=== PATIENT | female | born 1940 | race African-American/Black ===

== ENCOUNTER 2017-08-09 21:34 | Observation (INO) | payer MEDICARE ==
[2017-08-09 22:02] LABS: #Basophils 0.1 thou/uL (0.0-0.2); #Eosinphils 0.1 thou/uL (0.0-0.7); #Lymphocytes 2.8 thou/uL (1.20-3.40); #Monocytes 0.5 thou/uL (0.11-0.59); #Neutrophils 3.6 thou/uL (1.40-6.50); %Basophils 0.8 % (0.0-1.0); %Eosinophils 0.7 % (0.0-10.0); %Lymphocytes 39.5 % (21.0-51.0); %Monocytes 7.3 % (0.0-10.0); %Neutrophils 51.7 % (42.0-75.0); Hemoglobin 11.3 g/dL (12.0-16.0); Mean Corpuscular HGB CONC 32.9 g/dL (32.0-36.0); Mean Corpuscular Hemoglobin 30.5 pg (27.0-31.0); Mean Corpuscular Volume 92.6 fl (81.0-99.0); Mean Platelet Volume 7.8 fL (7.4-10.4); Platelet Count 237 thou/uL (130-400); Red Blood Cell (RBC) Count 3.72 mill/uL (4.20-5.40)
[2017-08-09] MEDS ORDERED: Morphine 4 MG/ML VIAL ONE (22:16)
[2017-08-09] MEDS ORDERED: Nitroglycerin 2% Ointment 1 INCH/1 GM Packet ONE (22:16)
[2017-08-09 22:23] LABS: ALT (SGPT) 17 U/L (8-55); AST (SGOT) 20 U/L (5-34); Alkaline Phosphatase 95 U/L (40-150); Anion Gap 15 mmol/L (10-20); BUN (Urea Nitrogen) 23 mg/dL (9.8-20.1); Bilirubin, Total 0.2 mg/dL (0.2-1.2); Calc. Creatinine Clearance 0 mL/min (70-130); Calcium 9.6 mg/dL (7.8-10.44); Carbon Dioxide 23 mmol/L (23-31); Chloride 106 mmol/L (98-107); Estimated GFR-MDRD 57; Globulin 2.9 g/dL (2.4-3.5); Glucose 165 mg/dL (83-110); Potassium 4.4 mmol/L (3.5-5.1); Protein, Total 6.9 g/dL (6.0-8.3); Sodium 140 mmol/L (136-145)
[2017-08-09 22:27] LABS: CKMB 1.1 ng/mL (0-6.6); Troponin I Less than 0.010 ng/mL (< 0.028)
[2017-08-09] MEDS ORDERED: HumaLOG 300 UNITS/3 ML VIAL SC PRN (22:39)
[2017-08-09] MEDS ORDERED: Dextrose 5% in Water 1,000 ML IV PRN (22:39)
[2017-08-09] MEDS ORDERED: Dextrose 50% Abboject 50 ML SYRINGE SLOW IVP PRN (22:39)
[2017-08-09] MEDS ORDERED: Nitroglycerin 0.4 MG TAB (25 Tab Bottle) PO PRN (22:40)
[2017-08-09] MEDS ORDERED: Morphine 4 MG/ML VIAL SLOW IVP PRN (22:42)
[2017-08-09 23:58] VITALS: BMI 24.5
[2017-08-10] MEDS ORDERED: Gabapentin 300 MG CAP PO SCH (00:30)
[2017-08-10] MEDS ORDERED: Milk Of Magnesia 30 ML UDCUP PO PRN (02:58)
[2017-08-10] MEDS ORDERED: Nitroglycerin 0.4 MG TAB (25 Tab Bottle) SL PRN (02:59)
--- NOTE | 2017-08-10 04:54 | HP ---
PRIMARY CARE PHYSICIAN: Tiffanie Nieves M.D. PRESENTING COMPLAINT: Chest pain. HISTORY OF PRESENT ILLNESS: Ms. Fransisca Calero is a 77-year-old female with a past medical histor y of diabetes mellitus, CKD 2, and hypertension, who presented to the emergency room with complaints of intermittent chest pain for the past 5 months. Her current episode started about a week ago, she describes it as retrosternal, pressure-like pain, which does not radiate, rated 8-9/10, increased by movement and exertion, reduced by taking nitroglycerin. However, today her pain was not relieved by nitroglycerin, so she decided to come to the emergency room. She denies palpitations, PND, orthopnea , lower extremity edema. She has no history of cough, shortness of breath, fever or chills. She has no urinary or abdominal symptoms. She was seen by Dr. Chand and he told that she had "leaky bowels " and needed further evaluation for the test to check for "blockage." However, she reports that she has insurance problems and was told to come up with $900 for the procedures to be done then, so she d eferred it. However, due to her continued pain, she decided to report to the emergency room yesterda y. PAST MEDICAL HISTORY: As stated in HPI. PAST SURGICAL HISTORY: History of Whipple's procedure. SOCIAL HISTORY: She does not smoke cigarettes, drink alcohol or use illicit drugs. FAMILY HISTORY: Reviewed and noncontributory. ALLERGIES: None. HOME MEDICATIONS: Benazepril/hydrochlorothiazide 20 mg/25 mg tablet 1 tablet daily, clarithromycin 5 00 mg b.i.d., amlodipine 10 mg daily, aspirin 81 mg daily, gabapentin 100 mg at bedtime, metformin 10 00 mg b.i.d., pantoprazole 20 mg b.i.d. REVIEW OF SYSTEMS: Twelve point review of systems conducted and negative except as stated in HPI. PHYSICAL EXAMINATION: VITAL SIGNS: Blood pressure 145/81, oxygen saturation 93% on room air, respiratory rate 16, pulse ra te 63, temperature 98.2. GENERAL: Not in acute distress, sleeping comfortably, but easily aroused. HEENT: Normocephalic, atraumatic. Not pale, anicteric. PERRLA, EOMI. Moist mucous membranes. NECK: Supple, full range of movement. No JVD. RESPIRATORY: Vesicular breath sounds bilaterally. CHEST: Tenderness to palpation. No wheezes, rales, or rhonchi. CARDIOVASCULAR: S1 and S2 only, regular rate and rhythm. ABDOMEN: Soft, nontender, nondistended. Bowel sounds normoactive. No hepatosplenomegaly. NEUROLOGIC: Alert and well oriented to time, place, and person. No focal deficits. SKIN: Warm, dry, well perfused. No rashes or lesions. MUSCULOSKELETAL: No edema. Moves all extremities spontaneously. PSYCHIATRIC: Normal mood and affect. LABORATORY DATA: CBC is largely unremarkable. CMP with creatinine of 1.11 and BUN of 23. Initial t roponin less than 0.010. CTA chest showed no evidence of pulmonary embolism. Chest x-ray showed chr onic changes, but no acute intrathoracic abnormality. EKG shows no signs of acute ischemia. ASSESSMENT AND PLAN: 1. Chest pain: The patient had anginal type chest pain, which is chronic. Concern for possible acu te coronary syndrome based on her age and risk factors. She has been admitted to telemetry, troponin will be monitored. She has been placed on IV morphine p.r.n. for chest pain as well as sublingual n itroglycerin p.r.n. for chest pain. Cardiology has been consulted. We will also obtain an echocardi ogram as well as an exercise stress test. She might require cardiac catheterization before discharge . 2. Hypertension: Blood pressure was markedly uncontrolled when she presented with blood pressure of 194/93. However, it improved to 141/82 with the nitro paste. We will monitor blood pressure closel y and gradually reintroduce her home medications. 3. Diabetes mellitus 2. She had fair control. Last A1c was 6.5 in July of this month. We will co ntinue diabetic diet, sliding scale insulin, hypoglycemia protocol and blood glucose will be checked before meals and at bedtime. Metformin will be held as she might be going for cardiac catheterizatio n this admission. 4. Chronic kidney disease stage 2: The patient is at baseline. We will continue her home regimens, and also renally dose medications and avoid nephrotoxic drugs. 5. Deep venous thrombosis prophylaxis, subcutaneous heparin. CODE STATUS: FULL CODE.
[2017-08-10 05:47] LABS: #Basophils 0.1 thou/uL (0.0-0.2); #Eosinphils 0.1 thou/uL (0.0-0.7); #Lymphocytes 2.8 thou/uL (1.20-3.40); #Monocytes 0.5 thou/uL (0.11-0.59); #Neutrophils 2.9 thou/uL (1.40-6.50); %Basophils 0.8 % (0.0-1.0); %Lymphocytes 44.1 % (21.0-51.0); %Monocytes 7.6 % (0.0-10.0); %Neutrophils 46.5 % (42.0-75.0); Hemoglobin 9.9 g/dL (12.0-16.0); Mean Corpuscular HGB CONC 32.6 g/dL (32.0-36.0); Mean Corpuscular Hemoglobin 30.2 pg (27.0-31.0); Mean Corpuscular Volume 92.9 fl (81.0-99.0); Mean Platelet Volume 7.9 fL (7.4-10.4); Platelet Count 217 thou/uL (130-400); RBC Distribution Width 13.2 % (11.5-14.5); Red Blood Cell (RBC) Count 3.28 mill/uL (4.20-5.40); White Blood Cell (WBC) Count 6.3 thou/uL (4.8-10.8)
[2017-08-10 05:55] LABS: Anion Gap 7 mmol/L (10-20); BUN (Urea Nitrogen) 23 mg/dL (9.8-20.1); Calc. Creatinine Clearance 48 mL/min (70-130); Calcium 9.2 mg/dL (7.8-10.44); Carbon Dioxide 29 mmol/L (23-31); Cardiac Risk 3.1 (Less than 4.5); Chloride 107 mmol/L (98-107); Cholesterol 118 mg/dl (< 200 Desired); Estimated GFR-MDRD 67; Glucose 157 mg/dL (83-110); HDL Cholesterol 38 mg/dL (>60 Neg Risk); LDL Cholesterol, Calculated 49 mg/dL; Potassium 3.5 mmol/L (3.5-5.1); Sodium 139 mmol/L (136-145); Triglycerides 155 mg/dL (Less than 150)
[2017-08-10 05:57] LABS: Troponin I Less than 0.010 ng/mL (< 0.028)
[2017-08-10] MEDS ORDERED: metFORMIN 500 MG TAB PO SCH (08:00)
[2017-08-10] MEDS ORDERED: Aspirin 325 MG TAB PO SCH (09:00)
[2017-08-10] MEDS ORDERED: Ondansetron HCl/PF 4 MG/2 ML Vial IVP PRN (09:45)
[2017-08-10] MEDS ORDERED: ONDANSETRON IVP SCH ×2 (10:00→10:15)
[2017-08-10] MEDS ORDERED: ADMIXTURE FEE IVP SCH (10:15)
[2017-08-10] MEDS ORDERED: PRE FILLED IVP SCH (10:15)
[2017-08-10] MEDS: Heparin 5,000 UNITS/ML VIAL SC SCH ×3 (12:15→20:28)
[2017-08-10] MEDS: Amlodipine 10 MG TAB PO SCH (12:17)
[2017-08-10] MEDS: Aspirin 81 mg Enteric Coated Tablet PO SCH (12:18)
[2017-08-10] MEDS: Docusate 100 MG CAP PO SCH ×2 (12:19→20:26)
[2017-08-10] MEDS ORDERED: Communication Order-Pharmacy FS SCH (17:30)
[2017-08-10] MEDS: Sodium Chloride 0.9% 1,000 ML IV SCH (18:20)
--- NOTE | 2017-08-10 18:54 | CON ---
DATE OF CONSULTATION: 08/10/2017 REASON FOR CONSULTATION: Chest pain. HISTORY OF PRESENT ILLNESS: Mrs. Calero is a very pleasant 77-year-old female wh o comes to the hospital for chest pain. She was seen in the office in October and she gave me a history of chest pain concerning for angina, so she was scheduled to have a left heart catheterization; [facility], she was asked to pay a front a large amount of money that she was unable to get, so she had been dealing with this chest pain. Yesterday, she came in as the pain was most intense it has ever been, so she was admitted for unstable angina. She was admitted and placed in observation for this. PAST MEDICAL HISTORY: 1. Type 2 diabetes. 2. Chronic kidney disease stage 2. 3. Hypertension. 4. Chronic chest pain. PAST SURGICAL HISTORY: Whipple's procedure. SOCIAL HISTORY: No alcohol, tobacco or drugs. FAMILY HISTORY: Noncontributory. OUTPATIENT MEDICATIONS: Include, 1. Benazepril, hydrochlorothiazide 20/25 mg a day. 2. Clarithromycin. 3. Amlodipine 10 mg a day. 4. Aspirin 81 a day. 5. Gabapentin. 6. Metformin 1000 mg b.i.d. 7. Pantoprazole 20 mg b.i.d. ALLERGIES: No known drug allergies. REVIEW OF SYSTEMS: A 12-point review of systems was done and is all negative unless stated in the h istory of present illness. PHYSICAL EXAMINATION: VITAL SIGNS: Temperature 97.7, pulse 67, respiration rate 16, satting 100% on room air, blood pressu re 136/72. GENERAL: Awake, alert, oriented x3, in no distress. HEENT: Normocephalic, atraumatic. NECK: Supple. LUNGS: Clear. CARDIOVASCULAR: S1, S2, no S3, S4, no murmurs. ABDOMEN: Soft, positive bowel sounds. EXTREMITIES: No edema. SKIN: Warm and dry. LABORATORY WORK: Reviewed. Troponin has been negative x2. Creatinine 0.97, GFR of 67, triglyceride s of 155, cholesterol 118, LDL 49, HDL of 38. EKG was reviewed. ASSESSMENT AND PLAN: Chest pain: Concern for unstable angina. We will plan on keeping her in the h ospital for now and we will do a left heart catheterization tomorrow. Risks and benefits have been d iscussed with her today and previously as well. The risks include, but not limited to stroke, WI, de ath, bleeding, need for blood transfusion, limb loss, organ loss, severe vessel injury. She agrees t o proceed. Further recommendation results of coronary angiogram.
[2017-08-10] MEDS: Gabapentin 300 MG CAP PO SCH (20:26)
[2017-08-11] MEDS: Aspirin 81 mg Enteric Coated Tablet PO SCH (04:09)
[2017-08-11] MEDS: Amlodipine 10 MG TAB PO SCH (04:10)
[2017-08-11] MEDS: Docusate 100 MG CAP PO SCH ×2 (04:10→20:37)
[2017-08-11] MEDS: Heparin 5,000 UNITS/ML VIAL SC SCH ×3 (04:10→20:39)
[2017-08-11] MEDS: Sodium Chloride 0.9% 1,000 ML IV SCH (04:12)
[2017-08-11 05:40] LABS: Anion Gap 8 mmol/L (10-20); BUN (Urea Nitrogen) 16 mg/dL (9.8-20.1); Calc. Creatinine Clearance 71 mL/min (70-130); Calcium 6.7 mg/dL (7.8-10.44); Carbon Dioxide 20 mmol/L (23-31); Chloride 117 mmol/L (98-107); Estimated GFR-MDRD Greater than 90; Glucose 135 mg/dL (83-110); Potassium 2.9 mmol/L (3.5-5.1); Sodium 142 mmol/L (136-145)
[2017-08-11 05:49] LABS: #Eosinphils 0.1 thou/uL (0.0-0.7); #Lymphocytes 1.7 thou/uL (1.20-3.40); #Monocytes 0.4 thou/uL (0.11-0.59); #Neutrophils 2.2 thou/uL (1.40-6.50); %Basophils 0.4 % (0.0-1.0); %Eosinophils 1.4 % (0.0-10.0); %Lymphocytes 39.6 % (21.0-51.0); %Monocytes 8.6 % (0.0-10.0); Hemoglobin 9.4 g/dL (12.0-16.0); Mean Corpuscular HGB CONC 32.9 g/dL (32.0-36.0); Mean Corpuscular Hemoglobin 31.1 pg (27.0-31.0); Mean Corpuscular Volume 94.7 fl (81.0-99.0); Mean Platelet Volume 8.3 fL (7.4-10.4); Platelet Count 191 thou/uL (130-400); RBC Distribution Width 13.2 % (11.5-14.5); Red Blood Cell (RBC) Count 3.02 mill/uL (4.20-5.40); White Blood Cell (WBC) Count 4.4 thou/uL (4.8-10.8)
[2017-08-11] MEDS ORDERED: Potassium Chloride 20 MEQ TAB PO SCH ×2 (06:00→08:15)
[2017-08-11] MEDS: Acetaminophen 325 MG TAB PO PRN ×2 (09:04→20:38)
[2017-08-11 12:38] LABS: Anion Gap 14 mmol/L (10-20); BUN (Urea Nitrogen) 18 mg/dL (9.8-20.1); Calc. Creatinine Clearance 51 mL/min (70-130); Calcium 8.8 mg/dL (7.8-10.44); Carbon Dioxide 21 mmol/L (23-31); Chloride 108 mmol/L (98-107); Estimated GFR-MDRD 70; Glucose 245 mg/dL (83-110); Potassium 5.5 mmol/L (3.5-5.1); Sodium 137 mmol/L (136-145)
--- NOTE | 2017-08-11 16:59 | PDOC.CTH ---
Cardiology Progress Note - Subjective She is doing well. No more chest pain. Her hgb dropped since admission so C was cancelled due to concern for bleeding. - Objective Vital Signs Temp Pulse Resp BP Pulse Ox 08/11/17 15:28 98.1 F 81 14 163/82 H 96 08/11/17 13:06 150/78 H 08/11/17 11:00 98 F 68 18 172/86 H 95 08/11/17 07:51 98 F 67 18 08/11/17 07:20 98.1 F 70 18 165/81 H 93 L Weight 147 lb 3.2 oz 08/10/17 08/11/17 08/12/17 06:59 06:59 06:59 Intake Total 360 1828 740 Output Total 300 500 Balance 60 1328 740 - Physical Examination General/Neuro: alert & oriented x3, NAD Neck: no JVD present Lungs: CTA, unlabored respirations Heart: RRR Abdomen: NT/ND Extremities: other: (no edema.) - Telemetry Telemetry Rhythm: NSR - Labs Result Diagrams: 08/11/17 04:46 08/11/17 11:19 Troponin/CKMB CK-MB (CK-2) 1.1 ng/mL (0-6.6) 08/09/17 21:56 Troponin I Less than 0.010 ng/mL (< 0.028) 08/10/17 04:51 - Assessment/Plan 1. Chest pain. 2. Anemia, may be related to fluids given. 3. Hypokalemia, replaced. PLAN: - If hgb stable tomorrow morning will plan in [facility]. - BMS if needed due to anemia.
[2017-08-11] MEDS: Gabapentin 300 MG CAP PO SCH (20:37)
--- NOTE | 2017-08-11 22:24 | PDOC.PN ---
- Subjective Encounter Start Date: 08/11/17 Encounter Start Time: 16:00 Subjective: nsg notes rev, iveth ovn no new c/o, at bedside -: denies any CP, SOB, n/v, headache, mm cramping - Objective Resuscitation Status: Resuscitation Status FULL:Full Resuscitation Vital Signs & Weight: Vital Signs (12 hours) Temp Pulse Resp BP Pulse Ox 08/11/17 19:41 98.2 F 74 14 154/80 H 95 08/11/17 15:28 98.1 F 81 14 163/82 H 96 08/11/17 13:06 150/78 H 08/11/17 11:00 98 F 68 18 172/86 H 95 Weight Weight 147 lb 3.2 oz I&O: 08/10/17 08/11/17 08/12/17 06:59 06:59 06:59 Intake Total 360 1828 980 Output Total 300 500 400 Balance 60 1328 580 Result Diagrams: 08/12/17 04:25 08/12/17 04:25 Additional Labs: Accuchecks 08/11/17 08/11/17 08/11/17 20:28 16:03 10:40 POC Glucose 176 H 159 H 282 H 08/10/17 10:39 POC Glucose 153 H Phys Exam - Physical Examination Constitutional: NAD HEENT: moist MMs, sclera anicteric, oral pharynx no lesions Respiratory: no wheezing, no rales, no rhonchi, clear to auscultation bilateral Cardiovascular: RRR, no rub Gastrointestinal: soft, no distention, positive bowel sounds Musculoskeletal: no edema, pulses present Neurological: moves all 4 limbs Psychiatric: normal affect, A&O x 3 Dx/Plan - Plan * chest pain * no recurrence * apprec card c/s * LHC originally planned for today is deferred due to hypokalemia hypokalemia * no obvious etiology at this time * repletion and recheck with telemetry monitoring * plan for LHC in AM if hypokalemia resovled diet: cardiac, NPO after mdinight activity: as sagrario dvt ppx
[2017-08-12 04:31] VITALS: TEMP 98
[2017-08-12] MEDS: Amlodipine 10 MG TAB PO SCH (05:13)
[2017-08-12] MEDS: Aspirin 81 mg Enteric Coated Tablet PO SCH (05:14)
[2017-08-12] MEDS: Docusate 100 MG CAP PO SCH (05:16)
[2017-08-12] MEDS: Heparin 5,000 UNITS/ML VIAL SC SCH (05:16)
[2017-08-12 05:25] LABS: Anion Gap 10 mmol/L (10-20); BUN (Urea Nitrogen) 21 mg/dL (9.8-20.1); Calc. Creatinine Clearance 53 mL/min (70-130); Calcium 9.1 mg/dL (7.8-10.44); Carbon Dioxide 27 mmol/L (23-31); Chloride 107 mmol/L (98-107); Estimated GFR-MDRD 74; Glucose 154 mg/dL (83-110); Sodium 140 mmol/L (136-145)
[2017-08-12 05:43] LABS: Eosinophils 1 % (0-10); Hemoglobin 11.2 g/dL (12.0-16.0); Lymphocytes 59 % (21-51); MDiff Complete? YES; Mean Corpuscular HGB CONC 32.6 g/dL (32.0-36.0); Mean Corpuscular Hemoglobin 30.2 pg (27.0-31.0); Mean Corpuscular Volume 92.6 fl (81.0-99.0); Mean Platelet Volume 8.2 fL (7.4-10.4); Monocytes 9 % (0-10); Myelocyte 1 % (0-0); Neutrophil 29 % (42-75); Platelet Count 233 thou/uL (130-400); Reactive Lymphocytes 1 % (0-10); Red Blood Cell (RBC) Count 3.69 mill/uL (4.20-5.40); White Blood Cell (WBC) Count 5.1 thou/uL (4.8-10.8)
[2017-08-12] MEDS ORDERED: Lidocaine 1% (PF) 30 ML VIAL ONE (09:29)
[2017-08-12 11:44] VITALS: BP 164/80
[2017-08-12] MEDS ORDERED: Iopamidol 370 76% 100 ML VIAL ONE (13:46)
== END 2017-08-12 15:53 | disposition home or self-care (01) ==
LOC: ERS 21:34 → 2SW 22:57
PROVIDERS: ADMIT Internal Medicine; ATTEND Internal Medicine
PROC: 4A023N7 Measurement of Cardiac Sampling and Pressure, Left Heart, Percutaneous Approach (ICD-10-PCS; principal; 2017-08-09)
DX: I25.110 Atherosclerotic heart disease of native coronary artery with unstable angina pectoris (principal); I12.9 Hypertensive chronic kidney disease with stage 1 through stage 4 chronic kidney disease, or unspecified chronic kidney disease; E11.22 Type 2 diabetes mellitus with diabetic chronic kidney disease; N18.2 Chronic kidney disease, stage 2 (mild); Z79.82 Long term (current) use of aspirin; Z79.84 Long term (current) use of oral hypoglycemic drugs; Z79.899 Other long term (current) drug therapy; Z98.890 Other specified postprocedural states
CPT/HCPCS: 80048 ×4; 80053; 80061; 82553; 82962 ×2; 84484 ×2; 85025 ×4; 93005; 93306; 93458; 94760; 96361 ×2; 96374; 96375; 96376 ×2; 99285; C1769; G0378 ×2; 36415; 36416; A4216; J1644; J2001; J2270; J2405

== ENCOUNTER 2017-10-01 13:39 | Outpatient (CLI) | payer MEDICARE | END 2017-10-01 13:40 | disposition home or self-care (01) | LOC: BICMAMMO 13:39 | PROVIDERS: ATTEND Family Medicine | DX: Z12.31 Encounter for screening mammogram for malignant neoplasm of breast (principal) | CPT/HCPCS: 77063; 77067 ==

== ENCOUNTER 2017-10-27 08:29 | Outpatient (CLI) | payer MEDICARE | END 2017-10-27 08:30 | disposition home or self-care (01) | LOC: EDBD → BICMRI 08:29 | PROVIDERS: ATTEND Family Medicine | DX: N64.4 Mastodynia (principal) | CPT/HCPCS: 82565; C8908 ==

== ENCOUNTER 2018-03-04 10:57 | Observation (INO) | payer MEDICARE ==
[2018-03-04 12:16] LABS: Troponin I Less than 0.010 ng/mL (< 0.028)
[2018-03-04] MEDS ORDERED: Iopamidol 370 76% 100 ML VIAL ONE (12:35)
[2018-03-04] MEDS ORDERED: Morphine 2 MG/ML SYRINGE ONE (12:41)
[2018-03-04 14:16] VITALS: BMI 23.0
[2018-03-04 15:14] LABS: Troponin I Less than 0.010 ng/mL (< 0.028)
[2018-03-04] MEDS ORDERED: Ondansetron PF 4 MG/2 ML Vial IVP PRN (15:16)
[2018-03-04] MEDS ORDERED: Ondansetron ODT 4 MG TAB PO PRN (15:16)
[2018-03-04] MEDS ORDERED: Acetaminophen 325 MG TAB PO PRN (15:16)
[2018-03-04] MEDS ORDERED: Nitroglycerin 0.4 MG TAB (25 Tab Bottle) SL PRN (15:23)
[2018-03-04 15:55] LABS: #Lymphocytes 1.6 thou/uL (1.20-3.40); #Monocytes 0.7 thou/uL (0.11-0.59); #Neutrophils 3.1 thou/uL (1.40-6.50); %Basophils 0.8 % (0.0-1.0); %Eosinophils 0.8 % (0.0-10.0); %Lymphocytes 29.3 % (21.0-51.0); %Monocytes 11.8 % (0.0-10.0); %Neutrophils 57.3 % (42.0-75.0); Hemoglobin 11.1 g/dL (12.0-16.0); Mean Corpuscular HGB CONC 32.2 g/dL (32.0-36.0); Mean Corpuscular Hemoglobin 30.4 pg (27.0-31.0); Mean Corpuscular Volume 94.3 fL (78.0-98.0); Mean Platelet Volume 8.4 fL (7.4-10.4); Platelet Count 235 thou/uL (130-400); RBC Distribution Width 12.9 % (11.5-14.5); Red Blood Cell (RBC) Count 3.65 mill/uL (4.20-5.40); White Blood Cell (WBC) Count 5.5 thou/uL (4.8-10.8)
[2018-03-04 16:06] LABS: ALT (SGPT) 40 U/L (8-55); AST (SGOT) 31 U/L (5-34); Albumin 3.7 g/dL (3.4-4.8); Alkaline Phosphatase 69 U/L (40-150); Anion Gap 14 mmol/L (10-20); BUN (Urea Nitrogen) 16 mg/dL (9.8-20.1); Bilirubin, Total 0.4 mg/dL (0.2-1.2); Calc. Creatinine Clearance 55 mL/min (70-130); Calcium 9.1 mg/dL (7.8-10.44); Carbon Dioxide 24 mmol/L (23-31); Chloride 108 mmol/L (98-107); Estimated GFR-MDRD 84; Globulin 2.6 g/dL (2.4-3.5); Glucose 100 mg/dL (83-110); Potassium 3.3 mmol/L (3.5-5.1); Protein, Total 6.3 g/dL (6.0-8.3); Sodium 143 mmol/L (136-145)
--- NOTE | 2018-03-04 18:00 | ULT ---
ULTRASOUND WITH DOPPLER DUPLEX VENOUS LOWER EXTREMITY BILATERAL 03/04/18 CPT: 23656 ICD-10-PCS: B54D HISTORY: Pain with elevated D-dimer. TECHNIQUE: Color flow Doppler, spectral waveform analysis of pulsed Doppler, and porter-scale imaging with bertrand jennifer and augmentation, were used to evaluate the bilateral common femoral, femoral, popliteal, assistant professor of economics ior tibial, and superficial femoral, veins; and the proximal portions of the profunda femoral and gre ater saphenous, veins. FINDINGS: There is appropriate compressibility and flow within the imaged deep vein system of each lower extrem ity. IMPRESSION: No DVT. POS: [facility]
--- NOTE | 2018-03-04 18:12 | CT ---
CTA THORAX WITH CONTRAST: 03/04/18 at 3:42 p.m. (Computed Tomographic Angiography, chest(noncoronary) with contrast material, and image postprocessin g) (PE protocol) HISTORY: 77-year-old female with chest pain. COMPARISON: 08/09/17. TECHNIQUE: IV injection of iodinated contrast: 70 mL Isovue 370. Scan acquisition timing attempted to coincide with iodinated contrast bolus reaching maximal density in pulmonary arteries. 3D MIP reconstructions. FINDINGS: There is a new finding of gas in the common hepatic duct, left and right hepatic ducts, and left intr ahepatic biliary radicles. There is very good opacification of all of the pulmonary artery branches. There is no pulmonary thromboembolism. There is no thoracic aortic aneurysm or dissection. There are densities at the posterior bases of the bilateral lower lobes at the posterior costophrenic angles, c onsistent with subsegmental atelectasis and/or scar, somewhat similar to previous CT. The rest of the lungs are essentially clear. No pleural effusion or pneumothorax. Trachea and major bronchi are pat ent and clear. No mediastinal or hilar lymphadenopathy. No pneumothorax. No pericardial effusion. Th e right breast is absent. Multiple thyroid nodules are again demonstrated, unchanged since 08/09/17. T he previous CTA showed a left adrenal nodule. The current CTA does not include that level. IMPRESSION: 1. New finding of pneumobilia. If the patient has had ERCP with sphincterotomy, or recent surgic al manipulation of the common bile duct, this could be explained by such a procedure. Otherwise, the possibility of emphysematous cholangitis would be raised. Recommend clinical correlation and correlat ion with any recent surgical history. 2. No pulmonary thromboembolism. 3. Status post right mastectomy. Code T jn[] POS: [facility]
[2018-03-04 18:16] LABS: Troponin I Less than 0.010 ng/mL (< 0.028)
[2018-03-04] MEDS: traMADol HCl 50 MG TAB PO PRN (19:13)
[2018-03-04] MEDS: Famotidine 20 MG TAB PO SCH (19:15)
[2018-03-04] MEDS ORDERED: Gabapentin 400 MG CAP PO SCH (21:00)
[2018-03-04] MEDS ORDERED: Atorvastatin Calcium 10 MG TAB PO SCH (21:00)
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
[2018-03-05 05:00] LABS: #Eosinphils 0.1 thou/uL (0.0-0.7); #Lymphocytes 1.6 thou/uL (1.20-3.40); #Monocytes 0.5 thou/uL (0.11-0.59); #Neutrophils 2.4 thou/uL (1.40-6.50); %Basophils 0.3 % (0.0-1.0); %Eosinophils 1.4 % (0.0-10.0); %Lymphocytes 34.7 % (21.0-51.0); %Monocytes 10.5 % (0.0-10.0); %Neutrophils 53.1 % (42.0-75.0); Hemoglobin 10.8 g/dL (12.0-16.0); Mean Corpuscular HGB CONC 32.2 g/dL (32.0-36.0); Mean Corpuscular Volume 93.3 fL (78.0-98.0); Mean Platelet Volume 8.3 fL (7.4-10.4); Platelet Count 217 thou/uL (130-400); RBC Distribution Width 12.9 % (11.5-14.5); Red Blood Cell (RBC) Count 3.59 mill/uL (4.20-5.40); White Blood Cell (WBC) Count 4.6 thou/uL (4.8-10.8)
[2018-03-05 05:14] LABS: Anion Gap 10 mmol/L (10-20); BUN (Urea Nitrogen) 15 mg/dL (9.8-20.1); Calc. Creatinine Clearance 61 mL/min (70-130); Calcium 8.7 mg/dL (7.8-10.44); Carbon Dioxide 26 mmol/L (23-31); Chloride 108 mmol/L (98-107); Estimated GFR-MDRD Greater than 90; Glucose 110 mg/dL (83-110); Potassium 3.3 mmol/L (3.5-5.1); Sodium 141 mmol/L (136-145)
[2018-03-05] MEDS: traMADol HCl 50 MG TAB PO PRN (08:12)
[2018-03-05] MEDS: Famotidine 20 MG TAB PO SCH (08:14)
[2018-03-05] MEDS ORDERED: Aspirin 81 mg Enteric Coated Tablet PO SCH (09:00)
[2018-03-05] MEDS ORDERED: Hydrochlorothiazide 25 MG TAB PO SCH (09:00)
[2018-03-05] MEDS ORDERED: Docusate 100 MG CAP PO SCH (09:00)
[2018-03-05] MEDS ORDERED: Lidocaine 5% Patch TD SCH (09:00)
[2018-03-05] MEDS ORDERED: Enoxaparin Sodium 40 MG/0.4 ML SYRINGE SC SCH (09:00)
[2018-03-05] MEDS ORDERED: Amlodipine 10 MG TAB PO SCH (09:00)
[2018-03-05 12:00] VITALS: TEMP 98.5
[2018-03-05 12:14] VITALS: BP 112/68
[2018-03-05] MEDS ORDERED: Lidocaine Patch Removal 1 EACH TOP SCH (21:00)
== END 2018-03-05 12:49 | disposition home or self-care (01) ==
LOC: ERS 10:57 → 2SW 12:45
PROVIDERS: ADMIT Internal Medicine Infectious Disease; ATTEND Internal Medicine Infectious Disease
DX: R07.9 Chest pain, unspecified (principal); E11.22 Type 2 diabetes mellitus with diabetic chronic kidney disease; I12.9 Hypertensive chronic kidney disease with stage 1 through stage 4 chronic kidney disease, or unspecified chronic kidney disease; E78.5 Hyperlipidemia, unspecified; K21.9 Gastro-esophageal reflux disease without esophagitis; N17.9 Acute kidney failure, unspecified; Z79.84 Long term (current) use of oral hypoglycemic drugs; Z79.02 Long term (current) use of antithrombotics/antiplatelets; Z79.899 Other long term (current) drug therapy
CPT/HCPCS: 71275; 80048; 80053; 84484 ×2; 85025 ×2; 93005; 93970; 96372; 96374; 96375; 99285; G0378 ×2; 36415; J1650; J2270; J2405; Q0162

== ENCOUNTER 2018-05-04 19:40 | Inpatient (IN) | payer MEDICARE ==
[2018-05-04] MEDS ORDERED: Ondansetron PF 4 MG/2 ML Vial IVP PRN (23:34)
[2018-05-04] MEDS ORDERED: Acetaminophen 325 MG TAB PO PRN (23:34)
[2018-05-04] MEDS ORDERED: Ondansetron ODT 4 MG TAB SL PRN (23:34)
[2018-05-04] MEDS ORDERED: Sodium Chloride 0.9% 1,000 ML IV SCH (23:34)
[2018-05-05] MEDS ORDERED: traMADol HCl 50 MG TAB PO PRN (00:21)
[2018-05-05] MEDS ORDERED: Nitroglycerin 0.4 MG TAB (25 Tab Bottle) SL PRN (00:21)
[2018-05-05 01:41] VITALS: BMI 23.8
[2018-05-05] MEDS ORDERED: Dextrose 50% Abboject 50 ML SYRINGE SLOW IVP PRN (05:01)
[2018-05-05] MEDS ORDERED: Dextrose 5% in Water 1,000 ML IV PRN (05:01)
[2018-05-05 06:25] LABS: Band 2 % (5-11); Hemoglobin 10.9 g/dL (12.0-16.0); Lymphocytes 36 % (21-51); MDiff Complete? YES; Mean Corpuscular HGB CONC 32.1 g/dL (32.0-36.0); Mean Corpuscular Hemoglobin 30.2 pg (27.0-31.0); Mean Corpuscular Volume 94.2 fL (78.0-98.0); Mean Platelet Volume 7.9 fL (7.4-10.4); Monocytes 6 % (0-10); Neutrophil 56 % (42-75); Platelet Count 219 thou/uL (130-400); Platelet Morphology Comment Appears Adequate; RBC Distribution Width 13.4 % (11.5-14.5); White Blood Cell (WBC) Count 4.8 thou/uL (4.8-10.8)
[2018-05-05 06:26] LABS: Anion Gap 12 mmol/L (10-20); BUN (Urea Nitrogen) 22 mg/dL (9.8-20.1); Calc. Creatinine Clearance 53 mL/min (70-130); Calcium 9.4 mg/dL (7.8-10.44); Carbon Dioxide 24 mmol/L (23-31); Cardiac Risk 2.1 (Less than 4.5); Chloride 110 mmol/L (98-107); Cholesterol 96 mg/dl (< 200 Desired); Estimated GFR-MDRD 77; Glucose 128 mg/dL (83-110); HDL Cholesterol 46 mg/dL (>60 Neg Risk); LDL Cholesterol, Calculated 37 mg/dL; Potassium 3.7 mmol/L (3.5-5.1); Sodium 142 mmol/L (136-145); Triglycerides 65 mg/dL (Less than 150)
--- NOTE | 2018-05-05 06:53 | HP ---
PRIMARY CARE PHYSICIAN: Niraj Solomon MD CODE STATUS: Full code. TIME OF EVALUATION: 9:10 p.m. CHIEF COMPLAINT: Right hand numbness. HISTORY OF PRESENT ILLNESS: This is a 77-year-old female patient with past medical history of hyperlipidemia; diabetes, type 2; GERD; and hypertension, came to the hospital after having right-sided weakness, especially in her hands. 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 No clear triggers and no alleviating factors. Also having some symptoms in the right leg. REVIEW OF SYSTEMS: CONSTITUTIONAL: No fever, chills, or generalized weakness. RESPIRATORY: No cough, sputum production, or shortness of breath. CARDIOVASCULAR: No chest pain or palpitations. GASTROINTESTINAL: No nausea. No vomiting, diarrhea, or abdominal pain. HANDLE FINISHER: The patient has no dizziness, headache, or feeling lightheaded. The patient reported weakness in the right hand and right lower extremity. GENITOURINARY: No burning on urination. EXTREMITIES: No leg swelling. All other systems were reviewed and negative except for the findings mentioned above. PAST MEDICAL HISTORY: As mentioned in the HPI. PAST SURGICAL HISTORY: The patient had Whipple surgery, right mastectomy, and surgical history of appendectomy. PSYCHIATRIC HISTORY: Depression. SOCIAL HISTORY: No alcohol, no drugs. No smoking history. ALLERGIES: NO KNOWN DRUG ALLERGIES REPORTED. MEDICATIONS: 1. Amlodipine. 2. Metformin. 3. Simvastatin. 4. Iron. 5. Gabapentin. 6. Hydrochlorothiazide. PHYSICAL EXAMINATION: VITAL SIGNS: On presentation; blood pressure 177/89 with heart rate 67, respiratory rate was 16, temperature 98.1, and oxygen saturation was 98% on room air. GENERAL APPEARANCE: The patient is alert, oriented, in no acute distress. HEENT: Eyes, normal conjunctivae. Moist oral mucosa. Anicteric. NECK: No JVD. RESPIRATORY: Bilateral air entry. No rales. No wheezing. Symmetric expansion. CARDIOVASCULAR: Normal rate. Regular rhythm. No murmurs. No gallops. No edema. ABDOMEN: Soft. Normal bowel sounds. MUSCULOSKELETAL: Baseline range of motion and strength. No tenderness. SKIN: Warm and intact. No burn or rash. No redness. EXTREMITIES: Peripheral pulses are present. Capillary refill seems to be intact. NEURO: No evidence of any new focal weakness. During my exam, the patient reported having right hand weakness and also weakness on the right lower extremity for the past 2 days. Cranial nerves seems to be intact. PSYCHIATRIC: The patient is in good mood. No anxiety. Oriented, optimal judgment. DIAGNOSTIC DATA: EKG was reviewed by myself and discussed with ER physician; normal sinus rhythm with a rate of 68, MD 134, QRS 78, QT corrected 442, minimum voltage criteria for LVH. Non-specific T-wave abnormalities. Labs were reviewed. The patient has a white count of 6.3, hemoglobin 12, MCV 94, and platelet count 254. Coagulation; PT 13, INR 1, PTT 23.8, and D-dimer is 0.5. Chemistry; sodium 143, potassium 4.1, chloride 108, carbon dioxide 26, anion gap 13, BUN 27, creatinine 1.72, GFR 73, and glucose 139. Urine was done and was basically negative. ASSESSMENT AND PLAN: The patient will be placed in the hospital with following medical problems: 1. Possible transient ischemic attack. The patient has right upper extremity and lower extremity weakness, symptoms were present for the past 2 days, on and off. We will do a stroke protocol MRI, echo. The patient also will need carotid Doppler. This placed the patient at high risk due to neurological changes. 2. Uncontrolled blood pressure. The patient has occasionally systolic blood pressure in 177, reconcile home meds, we will allow some permissive hypertension due to neurological symptoms. necessary. 3. Hyperlipidemia, low-cholesterol diet is advised, reconcile home medications. 4. Diabetes, type 2. We will reconcile home meds. We will place the patient on sliding scale. 5. Gastroesophageal reflux disease, reconcile home meds. 6. History of chronic back pain, reconcile home medications, adjust treatment as needed. 7. History of chronic kidney disease, monitor kidney function, treat accordingly. 8. Deep venous thrombosis prophylaxis. 9. Risk assessment. The patient is at high risk due to new neurological changes. Job ID: [id number] [facility]
[2018-05-05] MEDS ORDERED: Lorazepam 0.5 MG TAB PO SCH (08:15)
[2018-05-05] MEDS ORDERED: Aspirin 325 mg Enteric Coated Tablet PO SCH (09:00)
[2018-05-05] MEDS: Aspirin 81 mg Enteric Coated Tablet PO SCH (09:32)
[2018-05-05] MEDS: Enoxaparin Sodium 40 MG/0.4 ML SYRINGE SC SCH (09:32)
[2018-05-05] MEDS: Docusate 100 MG CAP PO SCH (09:33)
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
[2018-05-05] MEDS: HumaLOG 300 UNITS/3 ML VIAL SC PRN (11:49)
[2018-05-05 12:33] LABS: Troponin I Less than 0.010 ng/mL (< 0.028)
--- NOTE | 2018-05-05 12:47 | MRI ---
MRI BRAIN NONCONTRAST ENHANCED: HISTORY: The patient is complaining of right-sided weakness. TIAs. TECHNIQUE: Multiplanar, multisequence, noncontrast-enhanced MR images of the brain are obtained. FINDINGS: The images demonstrate no significant evidence of diffusion restriction. No evidence of intracranial masses, hemorrhages, or strokes seen. The ventricles are of normal size. Age appropriate cortical atrophy is present. No evidence of acute or old stroke seen. No evidence of acute intracranial pathology noted. IMPRESSION: Cortical atrophy with deep white matter ischemic changes. Normal flow voids seen in the major intrac ranial vessels. POS: [facility]
[2018-05-05] MEDS ORDERED: traMADol HCl 50 MG TAB PO SCH (13:00)
[2018-05-05] MEDS: Hydrochlorothiazide 25 MG TAB PO SCH (15:30)
[2018-05-05] MEDS: Amlodipine 10 MG TAB PO SCH (15:31)
--- NOTE | 2018-05-05 17:53 | PDOC.EVN ---
Event Note - Event Note Event Note: Chart reviewed. Pt seen with Nayeli Oliveros. Pt denies chest pain. S1, S2 Lungs CTA A/P: 1. TIA: w/u in progress 2. Hypertensive urgency: Improved. Agree with plan as documented by Ms. Oliveros.
[2018-05-05] MEDS: traMADol HCl 50 MG TAB PO SCH ×2 (19:27→20:50)
[2018-05-05] MEDS: Gabapentin 100 MG CAP PO SCH (20:49)
[2018-05-05] MEDS: Atorvastatin Calcium 40 MG TAB PO SCH (20:51)
[2018-05-05] MEDS: Atorvastatin Calcium 10 MG TAB PO SCH (20:51)
--- NOTE | 2018-05-05 23:14 | CON ---
DATE OF CONSULTATION: 05/05/2018 TYPE OF CONSULTATION: Neurologic Consultation. CONSULTING PHYSICIAN: Hospitalist Service. IMPRESSION: 1. Pressure palsy of the right arm. 2. Diabetes. 3. Hypertension. PLAN: The patient should recover spontaneously. HISTORY OF PRESENT ILLNESS: Ms. Calero is a 77-year-old black female with a past history as listed above. She was asleep and her noted that her arm was hanging off the bed. He picked her arm up and put it next to her. She apparently rolled over onto her right side. When she awoke, she found her arm was weak and that her hand was numb. There is some pain in the shoulder area, but no radicular pain. She came into the emergency room and had a CT and MRI of the brain, nothing remarkable was found. She has not had anything like this in the past. She denies any slurred speech or difficulty swallowing. She has no associated headache, nausea, vomiting, or vertigo. She does not report any new right leg weakness. She does have some joint pain. PAST MEDICAL HISTORY: As listed above. ALLERGIES: NONE. SOCIAL HISTORY: She is and does not smoke. MEDICATIONS: Medication list was reviewed. FAMILY HISTORY: Noncontributory. REVIEW OF SYSTEMS: Ten system review of systems was, otherwise, negative. PHYSICAL EXAMINATION: GENERAL: She is a thin, elderly lady, lying in bed, in no distress. VITAL SIGNS: Blood pressure 132/65, pulse 62, respirations 18, temperature 98.4. HEENT: Pupils are equal. Conjunctivae clear. Oropharynx clear. NECK: Supple. No lymphadenopathy. EXTREMITIES: No cyanosis or edema. NEUROLOGIC: She was alert and cooperative. Her speech was fluent and clear. Cranial nerves were intact. Motor exam showed 4-/5 biceps, triceps, wrist extension, wrist flexion, and finger flexion on the right. Sensation was subjectively decreased in the entire palm. No tremor or dysmetria was present. She can walk independently. Plantar responses were downgoing. SUMMARY: This is an elderly lady with diabetes and with weakness in the right arm upon awakening. Her MRI is negative. Her findings would be consistent with a pressure palsy. These usually improve spontaneously. Job ID: [id number]
[2018-05-06] MEDS: traMADol HCl 50 MG TAB PO SCH ×5 (05:25→23:28)
[2018-05-06] MEDS: Amlodipine 10 MG TAB PO SCH (08:41)
[2018-05-06] MEDS: Docusate 100 MG CAP PO SCH (08:43)
[2018-05-06] MEDS: Hydrochlorothiazide 25 MG TAB PO SCH (08:44)
[2018-05-06] MEDS: Aspirin 81 mg Enteric Coated Tablet PO SCH (08:44)
[2018-05-06] MEDS: Enoxaparin Sodium 40 MG/0.4 ML SYRINGE SC SCH (08:44)
--- NOTE | 2018-05-06 09:11 | PDOC.PN ---
- Subjective Encounter Start Date: 05/06/18 Encounter Start Time: 09:09 Subjective: Reports persistent numbness in right hand. Weakness improved slightly -: Swelling in right lower leg. Previous injury and undergoing therapy. -: However slightly more swollen and now with calf pain. No chest pain. Slightly winded when walking to the bathroom. No cough or hemoptysis. Tolerating food intake. Mild nausea yesterday relieved with anti-emetics. No vomiting. Denies any abdominal pain. Normal bowel movements. No urinary symptoms. Remains afebrile. - Objective Resuscitation Status - Order Detail: 05/05/18 00:18 Resuscitation Status Routine Resuscitation Status: FULL: Full Resuscitation Vital Signs & Weight: Vital Signs (12 hours) Temp Pulse Resp BP Pulse Ox 05/06/18 08:41 65 05/06/18 07:47 98.2 F 65 20 145/90 H 95 05/06/18 03:14 98.4 F 66 18 151/92 H 94 L 05/06/18 00:00 98.3 F 66 18 137/87 94 L Weight Weight 138 lb 14.4 oz I&O: 05/05/18 05/06/18 05/07/18 06:59 06:59 06:59 Intake Total 690 1440 Balance 690 1440 Result Diagrams: 05/06/18 09:24 05/06/18 09:24 Additional Labs: Accuchecks 05/06/18 05/05/18 05/05/18 05:41 19:59 11:12 POC Glucose 148 H 182 H 182 H Phys Exam - Physical Examination Constitutional: NAD HEENT: PERRLA, moist MMs, oral pharynx no lesions Neck: no JVD, supple, full ROM Respiratory: clear to auscultation bilateral Cardiovascular: RRR Gastrointestinal: soft, non-tender, no distention, positive bowel sounds Musculoskeletal: no edema Right lower leg swelling, calf tenderness Neurological: moves all 4 limbs reduced sensation in right hand. 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 -: Seen by Neuro, felt to have pressure palsy. -: Awaiting MRI Rt Shoulder scheduled as OutPt. Prior to having PT. Doppler negative. Sats low since admission. Given elevated d-dimer, I have requested CTPA. ADDENDUM: Due to complaints of nausea/dry heaving and abdo distention, Abdominal Xray obtained. Abdo Xray reviewed with Dr. Murphy. Fecal overloading noted. Miralax prescribed as well as Senna. Patient feeling better after Levsin. Will reassess in the AM.
[2018-05-06 09:33] LABS: #Basophils 0.1 thou/uL (0.0-0.2); #Eosinphils 0.1 thou/uL (0.0-0.7); #Lymphocytes 1.7 thou/uL (1.20-3.40); #Monocytes 0.4 thou/uL (0.11-0.59); %Basophils 1.4 % (0.0-1.0); %Eosinophils 1.2 % (0.0-10.0); %Lymphocytes 32.9 % (21.0-51.0); %Monocytes 7.6 % (0.0-10.0); %Neutrophils 56.9 % (42.0-75.0); Hemoglobin 11.5 g/dL (12.0-16.0); Mean Corpuscular HGB CONC 30.8 g/dL (32.0-36.0); Mean Corpuscular Hemoglobin 29.1 pg (27.0-31.0); Mean Corpuscular Volume 94.4 fL (78.0-98.0); Mean Platelet Volume 7.7 fL (7.4-10.4); Platelet Count 237 thou/uL (130-400); RBC Distribution Width 13.2 % (11.5-14.5); Red Blood Cell (RBC) Count 3.94 mill/uL (4.20-5.40); White Blood Cell (WBC) Count 5.3 thou/uL (4.8-10.8)
[2018-05-06 09:52] LABS: Anion Gap 14 mmol/L (10-20); BUN (Urea Nitrogen) 20 mg/dL (9.8-20.1); Calc. Creatinine Clearance 48 mL/min (70-130); Calcium 9.6 mg/dL (7.8-10.44); Carbon Dioxide 25 mmol/L (23-31); Chloride 104 mmol/L (98-107); Estimated GFR-MDRD 69; Glucose 168 mg/dL (83-110); Potassium 3.9 mmol/L (3.5-5.1); Sodium 139 mmol/L (136-145)
[2018-05-06] MEDS ORDERED: ISOVUE-370 76%-LOCM 1 ML ONE (10:09)
[2018-05-06] MEDS: HumaLOG 300 UNITS/3 ML VIAL SC PRN ×2 (12:11→20:28)
--- NOTE | 2018-05-06 12:40 | ULT ---
ULTRASOUND WITH DOPPLER DUPLEX VENOUS LOWER EXTREMITY BILATERAL: CPT: [address]113 ICD-10-PCS: B54D HISTORY: Lower extremity edema and pain bilaterally. TECHNIQUE: Color flow Doppler, spectral waveform analysis of pulsed Doppler, and porter-scale imaging with bertrand jennifer and augmentation, were used to evaluate the bilateral common femoral, femoral, popliteal, slag worker ior tibial, and superficial femoral, veins; and the proximal portions of the profunda femoral and gre ater saphenous, veins. FINDINGS: There is appropriate compressibility and flow within the imaged deep vein system of each lower extrem ity without evidence of DVT. IMPRESSION: No deep vein thrombosis of the visualized lower extremities. POS: [facility]
[2018-05-06] MEDS: Ondansetron ODT 4 MG TAB PO PRN (14:56)
--- NOTE | 2018-05-06 16:43 | PDOC.EVN ---
Event Note - Event Note Event Note: I reviewed the case with Genia. I was made aware by Genia that the patient had some nausea and abdominal distention with some visible movement of the upper abdomen. She had astutely checked BP in the extremities and the differential was small. The patient had a BM after the onset of symptoms, but that had not relieved the symptoms. Genia noted that the patient has been eating double trays with each meal. On exam, her abdomen was slightly distended and modestly TTP in upper abdomen. She was hypertympanic to percussion. BS increased. Suspect she has some gaseous distension and the movement is peristalsis related. KUB. Levsin. Continue with larger plan. Physical Therapy.
[2018-05-06] MEDS ORDERED: Senokot 8.6 MG TAB PO PRN (18:29)
[2018-05-06] MEDS ORDERED: Polyethylene Glycol 3350 17 GM Packet PO SCH (18:30)
--- NOTE | 2018-05-06 19:23 | RAD ---
KUB: 05/06/18 PROVIDED CLINICAL HISTORY: Abdominal distention. FINDINGS: Comparison 05/04/16. The abdominal bowel gas pattern is nonspecific. Moderate colonic fecal retention is seen. No definite radiographically apparent urinary tract calculi. The supine nature of the examination is not sensiti ve for detection of pneumoperitoneum. IMPRESSION: Nonspecific bowel gas pattern. POS: [facility]
[2018-05-06] MEDS: Atorvastatin Calcium 10 MG TAB PO SCH (20:01)
[2018-05-06] MEDS: Gabapentin 100 MG CAP PO SCH (20:01)
[2018-05-06] MEDS: Atorvastatin Calcium 40 MG TAB PO SCH (20:02)
--- NOTE | 2018-05-06 20:35 | CT ---
CT ANGIOGRAM THORAX WITH IV CONTRAST AND 3D RECONSTRUCTIONS 05/06/18 HISTORY: Elevated D-dimer, low oxygen saturation. On and off chest pain since Wednesday. COMPARISON: 03/04/18. FINDINGS: No filling defects are seen in the pulmonary arteries to suggest a pulmonary embolus. Vascular calcifications are seen in the thoracic aorta. The thoracic aorta is normal in caliber witho ut evidence of an aortic dissection. There are parenchymal densities seen in the lower lobes bilaterally, probably related to atelectasis although developing pneumonia at either lung base could not be entirely excluded. No pleural effusion is seen. No discrete pulmonary nodule or mass is identified. There is no evidence of mediastinal lymphadenopathy. Osteopenia is present. A hemangioma is seen within a mid thoracic vertebral body. Again noted are nodules within the left lobe o the thyroid gland, and the largest nodule measures cheikh roximately 1.3 cm. Again noted is pneumobilia which was present on the prior exam. The stomach is distended with gas and particulate matter as well as fluid which may be related to rec ent ingestion of a meal. There is a small hiatal hernia present. Small amount of fluid is seen in the esophagus which may be related to gastroesophageal reflux. There is mild gas distention of the limited visualized colon. A left adrenal nodule is present which was also present on CT abdomen in 2017 and demonstrates macros copic fat and probably represents a myolipoma. This is stable in size. 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 IMPRESSION: 1. No CT evidence of a pulmonary embolus. 2. Vascular calcifications thoracic aorta, but thoracic aorta is normal in caliber. 3. Bibasilar parenchymal densities, greater on the left which is probably related to atelectasis , but pneumonia cannot be entirely excluded. 4. Hiatal hernia with probable gastroesophageal reflux. 5. Distention of the stomach with fluid and particulate matter as well as gas which may be relat ed to recent ingestion of a meal. 6. Pneumobilia also seen on prior exam. 7. Gaseous distention of the visualized colon in the upper abdomen. 8. Left adrenal myolipoma. 9. Left thyroid nodule also seen on prior exam. Nonemergent thyroid ultrasound is suggested for further evaluation of this has not been performed. POS: [facility]
[2018-05-07] MEDS: traMADol HCl 50 MG TAB PO SCH ×3 (05:18→18:33)
[2018-05-07] MEDS: HumaLOG 300 UNITS/3 ML VIAL SC PRN ×3 (05:18→20:55)
[2018-05-07 08:30] LABS: #Eosinphils 0.1 thou/uL (0.0-0.7); #Lymphocytes 1.6 thou/uL (1.20-3.40); #Monocytes 0.6 thou/uL (0.11-0.59); #Neutrophils 4.4 thou/uL (1.40-6.50); %Basophils 0.5 % (0.0-1.0); %Eosinophils 0.9 % (0.0-10.0); %Lymphocytes 23.8 % (21.0-51.0); %Monocytes 8.7 % (0.0-10.0); %Neutrophils 66.1 % (42.0-75.0); Hemoglobin 10.7 g/dL (12.0-16.0); Mean Corpuscular Hemoglobin 29.2 pg (27.0-31.0); Mean Corpuscular Volume 94.4 fL (78.0-98.0); Platelet Count 212 thou/uL (130-400); RBC Distribution Width 13.4 % (11.5-14.5); Red Blood Cell (RBC) Count 3.64 mill/uL (4.20-5.40); White Blood Cell (WBC) Count 6.6 thou/uL (4.8-10.8)
[2018-05-07] MEDS: Amlodipine 10 MG TAB PO SCH (08:30)
[2018-05-07] MEDS: Hydrochlorothiazide 25 MG TAB PO SCH (08:30)
[2018-05-07] MEDS: Docusate 100 MG CAP PO SCH (08:30)
[2018-05-07] MEDS: Enoxaparin Sodium 40 MG/0.4 ML SYRINGE SC SCH (08:30)
[2018-05-07] MEDS: Aspirin 81 mg Enteric Coated Tablet PO SCH (08:30)
[2018-05-07 08:48] LABS: Anion Gap 14 mmol/L (10-20); BUN (Urea Nitrogen) 26 mg/dL (9.8-20.1); Calc. Creatinine Clearance 49 mL/min (70-130); Carbon Dioxide 23 mmol/L (23-31); Chloride 105 mmol/L (98-107); Estimated GFR-MDRD 70; Glucose 109 mg/dL (83-110); Potassium 3.7 mmol/L (3.5-5.1); Sodium 138 mmol/L (136-145)
[2018-05-07] MEDS ORDERED: Polyethylene Glycol 3350 17 GM Packet PO SCH ×2 (09:00)
[2018-05-07] MEDS: Senokot 8.6 MG TAB PO SCH ×2 (09:02→20:46)
--- NOTE | 2018-05-07 10:54 | EKG ---
Test Reason : Blood Pressure : / mmHG Vent. Rate : 068 BPM Atrial Rate : 068 BPM P-R Int : 134 ms QRS Dur : 078 ms QT Int : 416 ms P-R-T Axes : 049 002 022 degrees QTc Int : 442 ms Normal sinus rhythm Minimal voltage criteria for LVH, may be normal variant Nonspecific ST and T wave abnormality Abnormal ECG Confirmed by JB RUELAS DO ([id number]), editor magazine MICHAEL GARY ([id number]) on 05/07/2018 10:54:41 AM Referred By: JESSENIA Confirmed By:JB RUELAS DO
[2018-05-07] MEDS: Ondansetron ODT 4 MG TAB PO PRN (12:12)
[2018-05-07] MEDS ORDERED: Metoclopramide HCl 10 MG/2 ML VIAL IVP PRN (13:15)
[2018-05-07] MEDS ORDERED: Milk Of Magnesia 30 ML UDCUP PO SCH (13:15)
[2018-05-07] MEDS ORDERED: Famotidine 20 MG TAB PO SCH (13:30)
[2018-05-07 16:20] LABS: ALT (SGPT) 17 U/L (8-55); AST (SGOT) 22 U/L (5-34); Albumin 3.6 g/dL (3.4-4.8); Alkaline Phosphatase 72 U/L (40-150); Bilirubin, Direct 0.2 mg/dL (0.1-0.3); Bilirubin, Total 0.4 mg/dL (0.2-1.2); Lipase 27 U/L (8-78); Protein, Total 5.9 g/dL (6.0-8.3)
[2018-05-07] MEDS: Ondansetron PF 4 MG/2 ML Vial IVP PRN (18:36)
--- NOTE | 2018-05-07 19:14 | CT ---
NONCONTRAST CT ABDOMEN AND PELVIS: 05/07/18 HISTORY: Abdominal pain and tenderness, persistent vomiting. COMPARISON: 04/27/16 and CTA thorax on 05/06/18. FINDINGS: Again noted are parenchymal densities at each lung base which could be related to either atelectasis or pneumonia. New punctate calcifications are seen at each lung base. The stomach remains distended now with contrast and particulate matter. Contrast is seen in the dista l esophagus which may be related to gastroesophageal reflux. Pneumobilia is again present. There are postsurgical changes related to prior Whipple procedure. Rem aining visualized portions of the pancreas, right adrenal gland, and bilateral kidneys demonstrate a normal CT appearance. Fat density lesion involving the left adrenal gland is again seen probably rela alayna to a myolipoma. The urinary bladder is decompressed and not well evaluated. There is evidence of hysterectomy. There is a stable 2.8 cm hypodense structure seen within the right adnexal region. This was also seen on pr ior study in 2017 and does demonstrate fluid attenuation on this exam. This could potentially represe nt a right adnexal cyst. There are nonspecific dilated loops of small bowel within the abdomen, with a loop of bowel in the ri ght aspect of the abdomen measuring 5.5 cm in diameter. Findings are worrisome for developing partial small bowel obstruction. No free fluid or fluid collection is seen in the abdomen or pelvis. Degenerative changes are again noted in the spine. IMPRESSION: 1. Abnormal dilated loops of small bowel. No thickened pandya of the loops of small bowel are cheikh reciated. No abrupt transition point is present. However, developing partial small bowel obstruction is a possibility and loop of bowel in the right mid abdomen measures 5.5 cm in diameter. Followup arnold luation is recommended. 2. Bibasilar parenchymal changes which could be related to atelectasis, but bibasilar pneumonia is a possibility. 3. Postsurgical changes related to prior Whipple procedure. 4. Stable right adnexal cystic lesion. This structure was also present on a study in 2013 althou gh is larger in size on today's exam and measures 2.8 cm. POS: [facility]
--- NOTE | 2018-05-07 19:21 | PDOC.PN ---
- Subjective Encounter Start Date: 05/07/18 Encounter Start Time: 07:45 Subjective: Patient feeling better this morning. Reports a bowel movement. -: Had straining and stool was hard. No melena or bright red blood. -: Denies any nausea/vomiting this am. Feels "grumbling in her stomach" Eating breakfast at present. No fevers, chills or sweats. Reports excess flatus. Mild abdominal discomfort. - Objective Resuscitation Status - Order Detail: 05/05/18 00:18 Resuscitation Status Routine Resuscitation Status: FULL: Full Resuscitation Vital Signs & Weight: Vital Signs (12 hours) Temp Pulse Resp BP BP Pulse Ox 05/07/18 16:00 98.5 F 70 16 116/74 95 05/07/18 11:03 98.6 F 67 16 117/66 94 L 05/07/18 08:30 68 120/76 05/07/18 07:58 98.4 F 68 16 120/76 93 L Weight Weight 138 lb 14.4 oz I&O: 05/06/18 05/07/18 05/08/18 06:59 06:59 06:59 Intake Total 1920 960 600 Balance 1920 960 600 Result Diagrams: 05/07/18 08:06 05/07/18 08:06 Additional Labs: Accuchecks 05/07/18 05/07/18 05/07/18 16:49 10:53 05:18 POC Glucose 123 H 199 H 155 H 05/06/18 20:19 POC Glucose 151 H Phys Exam - Physical Examination Constitutional: NAD HEENT: PERRLA, moist MMs, oral pharynx no lesions Neck: no nodes, supple, full ROM Respiratory: clear to auscultation bilateral Cardiovascular: RRR Gastrointestinal: soft, non-tender, positive bowel sounds mild distention, no rigidity, no guarding Musculoskeletal: no edema, pulses present Neurological: normal sensation, moves all 4 limbs Psychiatric: normal affect, A&O x 3 Skin: no rash Dx/Plan (1) Pain and swelling of right lower leg Code(s): M79.661 - PAIN IN RIGHT LOWER LEG; M79.89 - OTHER SPECIFIED SOFT TISSUE DISORDERS Status: Acute (2) Numbness of right hand Code(s): R20.0 - ANESTHESIA OF SKIN Status: Acute (3) Right shoulder pain Code(s): M25.511 - PAIN IN RIGHT SHOULDER Status: Chronic (4) Diabetes type 2, controlled Code(s): E11.9 - TYPE 2 DIABETES MELLITUS WITHOUT COMPLICATIONS Status: Chronic Qualifiers: 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 status Diabetes mellitus complication status: with unspecified complications Qualified Code(s): E11.8 - Type 2 diabetes mellitus with unspecified complications (5) Dyslipidemia Code(s): E78.5 - HYPERLIPIDEMIA, UNSPECIFIED Status: Chronic (6) Hypertension Code(s): I10 - ESSENTIAL (PRIMARY) HYPERTENSION Status: Chronic Qualifiers: Hypertension type: essential hypertension Qualified Code(s): I10 - Essential (primary) hypertension (7) Nausea & vomiting Code(s): R11.2 - NAUSEA WITH VOMITING, UNSPECIFIED Status: Acute (8) Constipation Code(s): K59.00 - CONSTIPATION, UNSPECIFIED Status: Acute - Plan cont current plan of care, PT/OT, incentive spirometry, out of bed/ambulate Continue Miralax and Senna, MOM prescribed. -: Encourage ambulation. Walking program. PT/OT -: Continue anti-emetics. ADDENDUM: Patient with increased abdominal pain, tender on exam in the left abdomen and epigastric region. CT Abdomen requested. GI Consult requested. Keep NPO. Levsin discontinued. Dr. Paris aware and agrees with plan.
[2018-05-07] MEDS: Gabapentin 100 MG CAP PO SCH (20:45)
[2018-05-07] MEDS: Atorvastatin Calcium 10 MG TAB PO SCH (20:46)
[2018-05-07] MEDS: Famotidine 20 MG TAB PO SCH (20:46)
[2018-05-07] MEDS: Atorvastatin Calcium 40 MG TAB PO SCH (20:46)
[2018-05-07] MEDS ORDERED: Fleet Enema 133 ML BOT PR SCH (23:59)
[2018-05-08] MEDS: Ondansetron PF 4 MG/2 ML Vial IVP PRN (00:44)
[2018-05-08] MEDS: traMADol HCl 50 MG TAB PO SCH ×2 (00:44→06:49)
--- NOTE | 2018-05-08 01:58 | CON ---
DATE OF CONSULTATION: 05/07/2018 REASON FOR CONSULTATION: Abdominal pain, nausea, and vomiting. CONSULTING PHYSICIAN: Salbador Paris MD. HISTORY OF PRESENT ILLNESS: The patient is a 77-year-old female with past medical history of hyperlipidemia, diabetes, GERD, hypertension, and chronic kidney disease, presenting with complaints of weakness. The patient was initially sought healthcare assistance due to complaints of weakness, stated she had been having right-sided weakness especially in her hands that have been intermittently occurring over the last 2 days. This was characterized as decreased sensation as well as decreased strength on her right side concerning for possible stroke. However, upon further evaluation here in the hospital, she also endorses increased abdominal pain that has been present intermittently for the last year with the pain located primarily in the periumbilical region. Her pain is described as a burning/stabbing/cramping type sensation, would radiate to the lower abdomen and reach a severity of 7 to 8/10. The pain was worse with eating and not having a bowel movement, better with having a bowel movement and passing flatus. She is currently having approximately one bowel movement every 1 to 2 days with solid stool passed, but that would require increased straining and pressure on her abdomen in order to facilitate defecation. She has over the last year. She has been placed on iron supplementation for unknown reasons and has been exhibiting these change in her bowel movements ever since. She also describes increased nausea and vomiting of nonbloody emesis, also intermittently occurring with acute worsening of her intermittent abdominal pain. Currently, she denies any fevers, chills, GI bleeding, dysphagia, odynophagia, or diarrhea. REVIEW OF SYSTEMS: A 10-category review of systems was obtained with all responses negative except for the pertinent positives as listed in HPI. PAST MEDICAL HISTORY: As per HPI. PAST SURGICAL HISTORY: Whipple surgery, right mastectomy and appendectomy. FAMILY HISTORY: Denies any GI malignancies. SOCIAL HISTORY: Denies any tobacco, alcohol, or illicit drug use. OUTPATIENT MEDICATIONS: Reviewed. ALLERGIES: NO KNOWN DRUG ALLERGIES. PHYSICAL EXAMINATION: VITAL SIGNS: Temperature 97.6, pulse 74, blood pressure 130/73, respiratory rate 16, saturating 95% on room air. GENERAL: The patient was lying in bed, in no acute distress. Alert and oriented x4. HEENT: Normocephalic, atraumatic. NECK: Supple. No JVD or scleral icterus noted. CARDIOVASCULAR: Regular rate and rhythm with no discernible murmurs, gallops, or rubs. RESPIRATORY: Clear to auscultation bilaterally with no discernible wheezes or rales. ABDOMINAL: Normoactive bowel sounds. Soft. Mild to moderate abdominal distention, tenderness to palpation in the periumbilical and right upper quadrant. EXTREMITIES: No cyanosis, clubbing, or edema. LABORATORY DATA: CBC with a white blood cell count of 6.6, hemoglobin 10.7, hematocrit 34.4, platelets 212. Chemistry with a sodium of 138, potassium 3.7, chloride 105, CO2 of 23, BUN 26, creatinine 0.93, glucose 109, AST 22, ALT 17, alkaline phosphatase 72, total bilirubin 0.4. IMAGING DATA: KUB obtained on May 06, 2018 showed moderate colonic fecal retention. However, CT of the abdomen and pelvis was obtained on May 07, 2018, which showed abnormal dilated loops of small bowel with no thickened loops of small bowel, but a loop in the right mid abdomen measuring approximately 5.5 cm in diameter and with no abrupt transition point concerning for developing partial small bowel obstruction. Postsurgical changes were related to prior Whipple procedure including pneumobilia as well. ASSESSMENT AND PLAN: The patient is a 77-year-old female with past medical history of hyperlipidemia, diabetes, gastroesophageal reflux disease, hypertension, and chronic kidney disease, presenting with chronic abdominal pain and imaging consistent with chronic constipation. Constipation: The patient is presenting with intermittent increased abdominal pain located primarily in the periumbilical region that has been present for the last year. This has also been associated with a change in her bowel habits, having approximately one solid bowel movement every 1-2 days, characterized as a [place] type 1 in terms of stool consistency that would require increased straining and pressure to the abdomen in order to facilitate defecation. However, on this admission, she is noted to have acute worsening of her abdominal pain with unknown etiology at this time. However, she does have a CT scan of the abdomen and pelvis obtained today showing a moderate amount of fecal material within the colon as well as dilated loops of small bowel concerning for a possible developing partial small bowel obstruction. At this time, the more likely reason for the dilated loops of small bowel would be a fecal impaction either within the distal colon near the rectum or further up and she may benefit from decompression from that route. However, if she does exhibit continued abdominal distention, further interventions may be planned. Current differential could include constipation with fecal plug, inflammatory bowel disease (less likely given lack of wall thickening of the small bowel), chronic colonic pseudo-obstruction, Ara syndrome, small bowel ileus and/or possible small-bowel neoplasm (less likely). RECOMMENDATIONS: 1. We would place the patient on n.p.o. status except for medications. 2. We would continue with MiraLAX, but administer one capsule twice daily to facilitate softening of the stool from above. 3. We would recommend discontinuation of the senna as it is a prokinetic and could potentially generate more pain as the colon contracts under pressure. 4. We would recommend an enema to facilitate softening of the stool from below and to facilitate passage of a large amount of fecal material seen on CT. 5. We would have a low threshold for placement of an NG tube for decompression of the upper GI tract given the imaging findings consistent with a possible developing partial small bowel obstruction. We would also have a low threshold for consulting the General Surgery Service if the patient's condition is worsening. We will continue to follow. Please call with any questions. Job ID: [id number]
[2018-05-08] MEDS ORDERED: Acetaminophen 650 MG Suppository PR PRN (07:38)
--- NOTE | 2018-05-08 07:52 | PDOC.PN ---
- Subjective Encounter Start Date: 05/08/18 Encounter Start Time: 07:48 Subjective: Patient feeling tired due frequent bowel movements last night after enema. -: Moved a lot of stool. Feeling less bloated and with less discomfort. -: Vomited x 1 last night. No further vomiting but occasional dry heaves. Denies noting any melena or bright red blood in stool. Passing flatus. No urinary symptoms including dysuria or hematuria. Remains NPO except meds. Seen by Dr. Leal yesterday and per patient she may be undergoing a repeat CT with oral contrast. - Objective Resuscitation Status - Order Detail: 05/05/18 00:18 Resuscitation Status Routine Resuscitation Status: FULL: Full Resuscitation Vital Signs & Weight: Vital Signs (12 hours) Temp Pulse Resp BP Pulse Ox 05/08/18 03:05 98.8 F 74 16 147/83 H 94 L 05/08/18 00:20 98.3 F 75 16 142/84 H 92 L Weight Weight 138 lb 14.4 oz I&O: 05/07/18 05/08/18 05/09/18 06:59 06:59 06:59 Intake Total 960 600 Balance 960 600 Result Diagrams: 05/08/18 09:04 05/08/18 08:30 Additional Labs: Accuchecks 05/08/18 05/07/18 05/07/18 05:44 20:51 16:49 POC Glucose 144 H 204 H 123 H 05/07/18 10:53 POC Glucose 199 H Phys Exam - Physical Examination Constitutional: NAD Appears fatigued. Resting in bed. HEENT: PERRLA Neck: supple, full ROM Respiratory: no wheezing, no rales, no rhonchi, clear to auscultation bilateral Cardiovascular: RRR Gastrointestinal: soft, non-tender, no distention, positive bowel sounds no guarding/rigidity, hyperactive bowel sounds. Musculoskeletal: no edema, pulses present Neurological: normal sensation, moves all 4 limbs Psychiatric: normal affect, A&O x 3 Skin: no rash, normal turgor Dx/Plan (1) Pain and swelling of right lower leg Code(s): M79.661 - PAIN IN RIGHT LOWER LEG; M79.89 - OTHER SPECIFIED SOFT TISSUE DISORDERS Status: Chronic (2) Numbness of right hand Code(s): R20.0 - ANESTHESIA OF SKIN Status: Acute (3) Right shoulder pain Code(s): M25.511 - PAIN IN RIGHT SHOULDER Status: Chronic (4) Diabetes type 2, controlled Code(s): E11.9 - TYPE 2 DIABETES MELLITUS WITHOUT COMPLICATIONS Status: Chronic Qualifiers: Diabetes mellitus group home insulin use: unspecified group home insulin use status Diabetes mellitus complication status: with unspecified complications Qualified Code(s): E11.8 - Type 2 diabetes mellitus with unspecified complications (5) Dyslipidemia Code(s): E78.5 - HYPERLIPIDEMIA, UNSPECIFIED Status: Chronic (6) Hypertension Code(s): I10 - ESSENTIAL (PRIMARY) HYPERTENSION Status: Chronic Qualifiers: Hypertension type: essential hypertension Qualified Code(s): I10 - Essential (primary) hypertension (7) Nausea & vomiting Code(s): R11.2 - NAUSEA WITH VOMITING, UNSPECIFIED Status: Acute (8) Constipation Code(s): K59.00 - CONSTIPATION, UNSPECIFIED Status: Chronic Comment: Fecal retention, with hx of chronic constipation - Plan cont current plan of care, PT/OT, incentive spirometry, out of bed/ambulate, DVT proph w/lovenox Continue as per Dr. Leal (Miralax BID, d/c Senna, s/p fleet enema) -: Continue NPO except meds. IV fluids. -: D/C tramadol -: Encourage ambulation and incentive spirometry. -: Awaiting GI review for further recommendations, ?CT imaging per patient. ADDENDUM: Discussed with Dr. Leal who is aware of KUB results. No signs of complete bowel obstruction, however partial SBO is still a possibility. He agrees with advancing to clear liquids, continuing Miralax and see how patient does overnight. Please encourage ambulation. Patient with no pain, therefore scheduled Ultram discontinued. Tylenol PRN prescribed instead for mild pain. Patient seen and discussed with Dr. Dyer who agrees with plan as above. For possible discharge tomorrow if improved. Review of Systems - Review of Systems Constitutional: negative: fever, chills, sweats, weakness Respiratory: negative: Cough, Dry, Shortness of Breath, Hemoptysis, SOB with Excertion, Pleuritic Pain, Wheezing Cardiovascular: negative: chest pain, palpitations, orthopnea, paroxysmal nocturnal dyspnea, edema, light headedness Gastrointestinal: Vomiting (Vomiting x 1, no hematemesis), Other (Multiple bowel movements last night) Genitourinary: negative: Dysuria, Frequency, Incontinence, Hematuria, Retention Musculoskeletal: Shoulder Pain (right shoulder, old injury), Leg Pain (right leg , from previous injury) Skin: negative: Rash, Lesions Neurological: Weakness (improving, 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), Numbness (right hand, deemed to be due to nerve palsy, improving) - Medications/Allergies Allergies/Adverse Reactions: Allergies Allergy/AdvReac Type Severity Reaction Status Date / Time No Known Drug Allergies Allergy Verified 05/05/18 01:43 Medications: Current Medications Acetaminophen (Tylenol) 650 mg PO Q4H PRN PRN Reason: Headache/Fever/Mild Pain (1-3) Acetaminophen (Tylenol) 650 mg OR Q4H PRN PRN Reason: Headache/Fever/Mild Pain (1-3) Amlodipine Besylate (Norvasc) 10 mg PO DAILY [facility] Last Admin: 05/08/18 08:28 Dose: 10 mg Aspirin (Ecotrin) 81 mg PO DAILY [facility] Last Admin: 05/08/18 08:28 Dose: 81 mg Atorvastatin Calcium (Lipitor) 40 mg PO HS [facility] Last Admin: 05/07/18 20:46 Dose: Not Given Atorvastatin Calcium (Lipitor) 10 mg PO HS [facility] Last Admin: 05/07/18 20:46 Dose: 10 mg Dextrose/Water (Dextrose 50%) 25 gm SLOW IVP PRN PRN PRN Reason: Hypoglycemia Docusate Sodium (Colace) 100 mg PO DAILY [facility] Last Admin: 05/08/18 08:29 Dose: 100 mg Enoxaparin Sodium (Lovenox) 40 mg SC 0900 [facility] Last Admin: 05/08/18 08:27 Dose: 40 mg Famotidine (Pepcid) 20 mg PO BID [facility] Last Admin: 05/08/18 08:29 Dose: 20 mg Gabapentin (Neurontin) 400 mg PO HS [facility] Last Admin: 05/07/18 20:45 Dose: 400 mg Glucagon (Glucagon) 1 mg IM PRN PRN PRN Reason: Hypoglycemia Hydrochlorothiazide (Hydrochlorothiazide) 12.5 mg PO DAILY [facility] Last Admin: 05/08/18 08:29 Dose: 12.5 mg Dextrose/Water (D5w) 1,000 mls @ 0 mls/hr IV .Q0M PRN PRN Reason: Hypoglycemia Sodium Chloride (Normal Saline 0.9%) 1,000 mls @ 65 mls/hr IV .[id number] [facility] Last Admin: 05/08/18 08:02 Dose: 1,000 mls Insulin Human Lispro (Humalog) 0 units SC .MILD SLIDING SCALE PRN PRN Reason: Mild Correctional Scale Last Admin: 05/07/18 20:55 Dose: 3 unit Nitroglycerin (Nitrostat) 0.4 mg SL Q5MIN PRN PRN Reason: Chest Pain Ondansetron HCl (Zofran) 4 mg IVP Q6H PRN PRN Reason: Nausea/Vomiting Last Admin: 05/08/18 00:44 Dose: 4 mg Polyethylene Glycol (Miralax) 17 gm PO BID [facility] Last Admin: 05/08/18 08:28 Dose: 17 gm Sodium Chloride (Flush - Normal Saline) 10 ml IVF PRN PRN PRN Reason: Saline Flush Last Admin: 05/08/18 08:03 Dose: 10 ml
[2018-05-08] MEDS: Sodium Chloride 0.9% 1,000 ML IV SCH (08:02)
[2018-05-08] MEDS: Enoxaparin Sodium 40 MG/0.4 ML SYRINGE SC SCH (08:27)
[2018-05-08] MEDS: Amlodipine 10 MG TAB PO SCH (08:28)
[2018-05-08] MEDS: Polyethylene Glycol 3350 17 GM Packet PO SCH ×2 (08:28→20:10)
[2018-05-08] MEDS: Aspirin 81 mg Enteric Coated Tablet PO SCH (08:28)
[2018-05-08] MEDS: Famotidine 20 MG TAB PO SCH ×2 (08:29→20:09)
[2018-05-08] MEDS: Docusate 100 MG CAP PO SCH (08:29)
[2018-05-08] MEDS: Hydrochlorothiazide 25 MG TAB PO SCH (08:29)
[2018-05-08 08:59] LABS: ALT (SGPT) 21 U/L (8-55); AST (SGOT) 19 U/L (5-34); Albumin 3.4 g/dL (3.4-4.8); Alkaline Phosphatase 67 U/L (40-150); Anion Gap 13 mmol/L (10-20); BUN (Urea Nitrogen) 27 mg/dL (9.8-20.1); Bilirubin, Total 0.6 mg/dL (0.2-1.2); Calc. Creatinine Clearance 45 mL/min (70-130); Calcium 8.9 mg/dL (7.8-10.44); Carbon Dioxide 25 mmol/L (23-31); Chloride 103 mmol/L (98-107); Estimated GFR-MDRD 65; Globulin 2.2 g/dL (2.4-3.5); Glucose 115 mg/dL (83-110); Protein, Total 5.6 g/dL (6.0-8.3); Sodium 137 mmol/L (136-145)
[2018-05-08 09:10] LABS: #Eosinphils 0.1 thou/uL (0.0-0.7); #Lymphocytes 1.2 thou/uL (1.20-3.40); #Monocytes 0.9 thou/uL (0.11-0.59); #Neutrophils 5.6 thou/uL (1.40-6.50); %Basophils 0.3 % (0.0-1.0); %Eosinophils 0.7 % (0.0-10.0); %Lymphocytes 15.5 % (21.0-51.0); %Monocytes 11.5 % (0.0-10.0); %Neutrophils 72.1 % (42.0-75.0); Hemoglobin 11.1 g/dL (12.0-16.0); Mean Corpuscular HGB CONC 31.3 g/dL (32.0-36.0); Mean Corpuscular Hemoglobin 30.3 pg (27.0-31.0); Mean Corpuscular Volume 96.9 fL (78.0-98.0); Mean Platelet Volume 7.9 fL (7.4-10.4); Platelet Count 214 thou/uL (130-400); RBC Distribution Width 13.2 % (11.5-14.5); Red Blood Cell (RBC) Count 3.67 mill/uL (4.20-5.40); White Blood Cell (WBC) Count 7.8 thou/uL (4.8-10.8)
--- NOTE | 2018-05-08 11:46 | RAD ---
2 VIEWS ABDOMEN: Date: 05/08/18 PROVIDED CLINICAL HISTORY: Abdominal pain. FINDINGS: Comparison with CT examination of 05/07/18. Visualized lung bases are clear. There is no evidence for pneumoperitoneum. Contrast material is pres ent within the right colon. The abdominal bowel gas pattern is nonspecific. No radiographically appar ent urinary tract calculi. IMPRESSION: 1. Nonspecific bowel gas pattern. 2. Contrast material present within the right colon, excluding the presence of a complete small yessy l obstruction. POS: [facility]
[2018-05-08] MEDS: Acetaminophen 325 MG TAB PO PRN (16:19)
[2018-05-08] MEDS: HumaLOG 300 UNITS/3 ML VIAL SC PRN (17:01)
[2018-05-08] MEDS: Gabapentin 100 MG CAP PO SCH (20:09)
[2018-05-08] MEDS: Atorvastatin Calcium 40 MG TAB PO SCH (20:10)
[2018-05-08] MEDS: Atorvastatin Calcium 10 MG TAB PO SCH (20:10)
--- NOTE | 2018-05-08 23:10 | PRG ---
DATE OF SERVICE: 05/08/2018 REASON FOR CONSULTATION: Abdominal pain, nausea, and vomiting. SUBJECTIVE: The patient underwent a Fleet enemas last night and after the enema had a significant amount of stool evacuated from her bowel upon having this larger bowel movement, she states that her abdominal distention and abdominal pain improved. Today, she states that her pain is still present but very much improved when compared to previous. Currently, denies any nausea, vomiting, fevers, chills, or GI bleeding. Based on the CT scan that was done yesterday, there was some concern for small bowel obstruction but at this point, the patient is having bowel movements and passing gas, making a complete bowel obstruction less likely. OBJECTIVE: VITAL SIGNS: Temperature 97.7, pulse 69, blood pressure 126/77, respiratory rate 20, saturating 94% on room air. GENERAL: The patient is lying in bed, in no acute distress. Alert and oriented x4. CARDIOVASCULAR: Regular rate and rhythm. RESPIRATORY: Clear to auscultation bilaterally. ABDOMEN: Normoactive bowel sounds. Soft. Mild abdominal distention with tenderness to palpation in the periumbilical region. EXTREMITIES: No cyanosis, clubbing, or edema. LABORATORY DATA: CBC with a white blood cell count of 7.8, hemoglobin 11.1, hematocrit 35.6, platelets 214. Chemistry with a sodium of 137, potassium 4, chloride 103, CO2 of 25, BUN 27, creatinine 1, glucose 115. IMAGING DATA: KUB obtained on May 08, 2018 showed a nonspecific bowel gas pattern with contrast material present within the right colon excluding the presence of a complete small-bowel obstruction. However, no comment was made on any significant small bowel dilatation or transition point indicative of a partial small bowel obstruction. ASSESSMENT AND PLAN: The patient is a 77-year-old female with past medical history of hyperlipidemia, diabetes, GERD, hypertension and chronic kidney disease, presenting with chronic abdominal pain and imaging consistent with chronic constipation. Constipation. The patient is initially presenting with intermittent increased abdominal pain in the periumbilical region that had been present for the last year. This was also associated with a change in her bowel habits, having approximately one solid bowel movement every 1 to 2 days and does fall in line with the coadministration of iron supplementation, which could be fairly constipating. On the CT scan of the abdomen and pelvis obtained during this admission, there was a moderate amount of fecal material within the colon as well as dilated loops of small bowel concerning for possible developing partial small bowel obstruction. She did undergo a Fleet enema last night with a significantly large bowel movement and upon evacuation of her bowels, has had improvement in her abdominal pain and abdominal distention, increased gas within the small intestine was not reflected on the KUB today, but not specifically mentioned during that study. At this time, I would recommend continued observation of the patient with probable KUB obtained tomorrow if continuing to have abdominal pain and/or not having any bowel movements. RECOMMENDATIONS: 1. Would place the patient back on a clear liquid diet given symptomatic improvement with having a bowel movement and no evidence of complete bowel obstruction on KUB. 2. We would continue with MiraLAX administering one cap full twice daily. 3. Could consider repeat enema to facilitate or soften stool plug, preventing further passage. 4. We will continue to follow. Please call with any questions. Job ID: [id number]
[2018-05-09] MEDS: Sodium Chloride 0.9% 1,000 ML IV SCH ×2 (00:45→17:11)
[2018-05-09 05:06] LABS: #Basophils 0.1 thou/uL (0.0-0.2); #Eosinphils 0.1 thou/uL (0.0-0.7); #Lymphocytes 2.1 thou/uL (1.20-3.40); #Monocytes 0.5 thou/uL (0.11-0.59); #Neutrophils 1.5 thou/uL (1.40-6.50); %Basophils 1.2 % (0.0-1.0); %Eosinophils 2.4 % (0.0-10.0); %Lymphocytes 49.1 % (21.0-51.0); %Monocytes 12.5 % (0.0-10.0); %Neutrophils 34.8 % (42.0-75.0); Hemoglobin 10.9 g/dL (12.0-16.0); Mean Corpuscular HGB CONC 31.2 g/dL (32.0-36.0); Mean Corpuscular Hemoglobin 30.5 pg (27.0-31.0); Mean Corpuscular Volume 97.7 fL (78.0-98.0); Mean Platelet Volume 8.2 fL (7.4-10.4); Platelet Count 218 thou/uL (130-400); RBC Distribution Width 13.1 % (11.5-14.5); Red Blood Cell (RBC) Count 3.59 mill/uL (4.20-5.40); White Blood Cell (WBC) Count 4.3 thou/uL (4.8-10.8)
[2018-05-09 05:25] LABS: ALT (SGPT) 20 U/L (8-55); AST (SGOT) 21 U/L (5-34); Albumin 3.3 g/dL (3.4-4.8); Alkaline Phosphatase 64 U/L (40-150); Anion Gap 14 mmol/L (10-20); BUN (Urea Nitrogen) 20 mg/dL (9.8-20.1); Bilirubin, Total 0.6 mg/dL (0.2-1.2); Calc. Creatinine Clearance 53 mL/min (70-130); Calcium 9.1 mg/dL (7.8-10.44); Carbon Dioxide 22 mmol/L (23-31); Chloride 111 mmol/L (98-107); Estimated GFR-MDRD 77; Globulin 2.3 g/dL (2.4-3.5); Glucose 122 mg/dL (83-110); Potassium 4.2 mmol/L (3.5-5.1); Protein, Total 5.6 g/dL (6.0-8.3); Sodium 143 mmol/L (136-145)
[2018-05-09] MEDS: Polyethylene Glycol 3350 17 GM Packet PO SCH ×2 (08:07→22:40)
[2018-05-09] MEDS: Hydrochlorothiazide 25 MG TAB PO SCH (08:08)
[2018-05-09] MEDS: Enoxaparin Sodium 40 MG/0.4 ML SYRINGE SC SCH (08:08)
[2018-05-09] MEDS: Amlodipine 10 MG TAB PO SCH (08:08)
[2018-05-09] MEDS: Aspirin 81 mg Enteric Coated Tablet PO SCH (08:09)
[2018-05-09] MEDS: Famotidine 20 MG TAB PO SCH ×2 (08:09→22:39)
[2018-05-09] MEDS: Docusate 100 MG CAP PO SCH (08:09)
[2018-05-09] MEDS: Acetaminophen 325 MG TAB PO PRN (10:39)
[2018-05-09] MEDS: HumaLOG 300 UNITS/3 ML VIAL SC PRN (11:55)
--- NOTE | 2018-05-09 18:19 | PRG ---
DATE OF SERVICE: 05/09/2018 SUBJECTIVE: Ms. Calero says she is feeling pretty well today. She has not had any abdominal pain. She has had 4 or 5 soft bowel movements. She has remained on her liquid diet and tolerating that. OBJECTIVE: VITAL SIGNS: Temperature 98.3, pulse 74, blood pressure 156/90, 96% oxygen saturation on room air. GENERAL: No acute distress. HEART: Regular rate and rhythm. LUNGS: Clear to auscultation bilaterally. ABDOMEN: Nondistended. Bowel sounds are present. Soft and nontender to palpation. EXTREMITIES: No peripheral edema. LABORATORY STUDIES: Sodium 143, potassium 4.2, BUN 20, creatinine 0.86, total bilirubin 0.6, alkaline phosphatase 64, AST 21, ALT 20, albumin 3.3. WBC 4.3, hemoglobin 10.9, platelets 218. ASSESSMENT/PLAN: Constipation. Ms. Calero has done pretty well today, having lots of bowel movements and less abdominal distention and pain. I would recommend advancing to a regular diet tonight and seeing how she does. We would continue with increased bowel regimen. I think MiraLAX 17 g taken 1 to 2 times daily will probably be enough to keep her out of trouble going forward. Continue a stool softener as well. I think if she does well this evening with dinner, then she could potentially be discharged from the hospital within the next 24 hours from a GI standpoint. GI will sign off, but please call back anytime with questions or concerns. Job ID: [id number]
--- NOTE | 2018-05-09 21:17 | PDOC.PN ---
- Subjective Encounter Start Date: 05/09/18 Encounter Start Time: 21:13 Subjective: Feeling better today - Objective Resuscitation Status - Order Detail: 05/05/18 00:18 Resuscitation Status Routine Resuscitation Status: FULL: Full Resuscitation Vital Signs & Weight: Vital Signs (12 hours) Temp Pulse Resp BP Pulse Ox 05/09/18 20:00 98.5 F 73 18 159/97 H 98 05/09/18 15:55 98.3 F 74 16 156/90 H 96 05/09/18 11:56 97.7 F 77 16 137/76 95 Weight Weight 138 lb 14.4 oz I&O: 05/08/18 05/09/18 05/10/18 06:59 06:59 06:59 Intake Total 600 600 Balance 600 600 Result Diagrams: 05/09/18 04:58 05/09/18 04:58 Additional Labs: Accuchecks 05/09/18 05/09/18 05/09/18 16:43 11:12 06:25 POC Glucose 84 192 H 145 H Phys Exam - Physical Examination Constitutional: NAD HEENT: PERRLA, moist MMs, sclera anicteric, TM's clear Neck: no nodes, no JVD, supple, full ROM Respiratory: no wheezing, no rales, no rhonchi, clear to auscultation bilateral Cardiovascular: RRR, no significant murmur, no rub Gastrointestinal: soft, non-tender, no distention, positive bowel sounds Musculoskeletal: no edema, pulses present Dx/Plan (1) Nausea & vomiting Code(s): R11.2 - NAUSEA WITH VOMITING, UNSPECIFIED Status: Acute (2) Constipation Code(s): K59.00 - CONSTIPATION, UNSPECIFIED Status: Chronic Comment: Fecal retention, with hx of chronic constipation (3) Diabetes type 2, controlled Code(s): E11.9 - TYPE 2 DIABETES MELLITUS WITHOUT COMPLICATIONS Status: Chronic Qualifiers: Diabetes mellitus intermediate card tender insulin use: unspecified intermediate card tender insulin use status Diabetes mellitus complication status: with unspecified complications Qualified Code(s): E11.8 - Type 2 diabetes mellitus with unspecified complications (4) Dyslipidemia Code(s): E78.5 - HYPERLIPIDEMIA, UNSPECIFIED Status: Chronic (5) Hypertension Code(s): I10 - ESSENTIAL (PRIMARY) HYPERTENSION Status: Chronic Qualifiers: Hypertension type: essential hypertension Qualified Code(s): I10 - Essential (primary) hypertension - Plan plan discussed w/ family, PT/OT, social media editor Advancing diet -: Daily laxative -: Dispo planning next 24hrs * .
[2018-05-09] MEDS: Gabapentin 100 MG CAP PO SCH (22:39)
[2018-05-09] MEDS: Atorvastatin Calcium 10 MG TAB PO SCH (22:39)
[2018-05-09] MEDS: Atorvastatin Calcium 40 MG TAB PO SCH (22:40)
[2018-05-10] MEDS: Enoxaparin Sodium 40 MG/0.4 ML SYRINGE SC SCH (09:41)
[2018-05-10] MEDS: Hydrochlorothiazide 25 MG TAB PO SCH (09:41)
[2018-05-10] MEDS: Polyethylene Glycol 3350 17 GM Packet PO SCH (09:41)
[2018-05-10] MEDS: Amlodipine 10 MG TAB PO SCH (09:42)
[2018-05-10] MEDS: Docusate 100 MG CAP PO SCH (09:42)
[2018-05-10] MEDS: Aspirin 81 mg Enteric Coated Tablet PO SCH (09:42)
[2018-05-10] MEDS: Famotidine 20 MG TAB PO SCH (09:42)
--- NOTE | 2018-05-10 11:40 | DIS ---
DATE OF ADMISSION: 05/04/2018 DATE OF DISCHARGE: 05/10/2018 PRIMARY CARE PROVIDER: Tiffanie Nieves MD DISCHARGE DISPOSITION: Home. FINAL DIAGNOSES: Abdominal pain, diabetes mellitus type 2, dyslipidemia, constipation, and hypertension. DISCHARGE MEDICATIONS: 1. Metformin 500 mg twice a day. 2. Aspirin 81 mg a day. 3. Amlodipine 10 mg once a day. 4. Gabapentin 400 mg at bedtime. 5. Lipitor 10 mg a day. 6. MiraLAX 17 g in water twice a day. 7. Hydrochlorothiazide 12.5 mg twice a day. ALLERGIES: NONE KNOWN. DIET: Diabetic. CODE STATUS: Full resuscitation. PENDING AT TIME OF DISCHARGE: Nothing. HOSPITAL COURSE: The patient admitted to the [place] [facility] with right hand numbness and history of multiple medical problems. She had a brain MRI, which was unrevealing. She was seen in consultation by Dr. Roberto Galindo, Neurology. 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 Echocardiogram was unrevealing. The patient was subsequently seen by Dr. Cholo Leal for abdominal pain, nausea, and vomiting. She was found to have fecal impaction, which responded to stool softeners and MiraLAX. She is currently doing very well with no numbness or weakness anywhere. She is being discharged on her home medicines with the addition of MiraLAX 17 g in water twice a day. She has apparently had this problem with this recurrent abdominal pain and fecal impaction for quite a while. No procedures were done while she was in the hospital. She is being discharged for followup by Dr. Tiffanie Nieves in 1 week. PERTINENT LABORATORY DURING HER HOSPITAL STAY: Comp metabolic profile was remarkable only for a mild decrease of total protein. Albumin was normal. Electrolytes and renal function were normal. CBC showed a hemoglobin of 11+/-, normal white cell count, and normal platelet count. Job ID: [id number]
[2018-05-10 12:04] VITALS: BP 172/88; TEMP 98
== END 2018-05-10 12:27 | disposition home or self-care (01) | DRG 392 ==
LOC: ERS 19:40 → 2SE 21:03 → OBSVTOIN 21:03
PROVIDERS: ADMIT Hospitalist; ATTEND Hospitalist
DX: K59.00 Constipation, unspecified (principal); R20.0 Anesthesia of skin; E78.5 Hyperlipidemia, unspecified; K21.9 Gastro-esophageal reflux disease without esophagitis; F32.9 Major depressive disorder, single episode, unspecified; M54.9 Dorsalgia, unspecified; G89.29 Other chronic pain; E11.22 Type 2 diabetes mellitus with diabetic chronic kidney disease; I12.9 Hypertensive chronic kidney disease with stage 1 through stage 4 chronic kidney disease, or unspecified chronic kidney disease; N18.9 Chronic kidney disease, unspecified; I16.0 Hypertensive urgency; M25.511 Pain in right shoulder; R53.1 Weakness; Z79.84 Long term (current) use of oral hypoglycemic drugs
CPT/HCPCS: 36415; 36416; 70551; 71275; 74018; 74019; 74176; 80048; 80053; 80061; 80076; 83690; 84484; 85025; 85379; 93005; 93306; 93970; J1650; J2405; J2765; Q0162

== ENCOUNTER 2018-05-24 09:37 | Outpatient (CLI) | payer MEDICARE ==
--- NOTE | 2018-05-24 11:26 | MRI ---
MRI OF RIGHT SHOULDER PERFORMED WITHOUT CONTRAST ENHANCEMENT: HISTORY: Right shoulder pain. FINDINGS: There are some mild AC joint hypertrophic changes with slightly laterally downsloping acromion. There is a full-thickness supraspinatus tendon tear. The articular-sided fibers are more retracted t mott the bursal-sided fibers. The bursal-sided fibers are very irregular in appearance. The tendon i s retracted by approximately 2.3 cm. The AP dimension of the full-thickness component of the tear is probably also in the 2 cm range. There is continuation of the tear into anterior fibers of the infr aspinatus tendon with delamination with fluid extending into the musculotendinous junction of the inf raspinatus. There is also some involvement of the superior fibers of the subscapularis tendon which shows a partial tear and moderate tendinopathy change. The intraarticular portion of the biceps tend on is difficult to visualize. It is tendinotic in appearance and there is probably an associated spl it tear present. Some increased signal change is seen within the tendon in the bicipital groove. Th e tendon does lie in a normal position within the bicipital groove. There is mild atrophy of the sup erior fibers of the subscapularis muscle and some mild atrophy to the supraspinatus muscle. There are arthritic changes of the glenohumeral joint space. No signs of any definite labral tear. The inferior glenohumeral ligament is intact. IMPRESSION: 1. A full-thickness supraspinatus tendon tear as discussed above. The tear does extend into infrasp inatus tendon involving some of the anterior fibers of the infraspinatus tendon with delamination wit h fluid extending to musculotendinous junction. There is also a partial tear of the superior fibers of the subscapularis tendon. Biceps tendon does maintain a normal position. Mild atrophy of the sub scapularis and supraspinatus muscles is present. 2. Marked tendinopathy changes of the intraarticular portion of the biceps tendon which also probabl y has an associated split tear. POS: [facility]
== END 2018-05-24 09:38 | disposition home or self-care (01) ==
LOC: EDBD → MRI 09:37
PROVIDERS: ATTEND Orthopaedic Surgery
DX: M25.511 Pain in right shoulder (principal); S46.811A Strain of other muscles, fascia and tendons at shoulder and upper arm level, right arm, initial encounter

== ENCOUNTER 2020-08-27 17:47 | Observation (INO) | payer MEDICARE ==
[~2020-08-27 17:47] MED LIST: Iopamidol-370 76% 500 ML 1 ML ONE
[2020-08-27] MEDS ORDERED: Morphine 4 MG/ML VIAL ONE (18:29)
[2020-08-27] MEDS ORDERED: Ondansetron PF 4 MG/2 ML Vial ONE (18:29)
[2020-08-27 18:42] LABS: #Basophils 0.1 thou/uL (0.0-0.2); #Eosinphils 0.1 thou/uL (0.0-0.7); #Monocytes 0.4 thou/uL (0.11-0.59); #Neutrophils 3.9 thou/uL (1.40-6.50); %Lymphocytes 31.5 % (21.0-51.0); %Monocytes 6.4 % (0.0-10.0); %Neutrophils 60.1 % (42.0-75.0); Hemoglobin 11.4 g/dL (12.0-16.0); Mean Corpuscular HGB CONC 30.9 g/dL (32.0-36.0); Mean Corpuscular Hemoglobin 30.4 pg (27.0-31.0); Mean Corpuscular Volume 98.5 fL (78.0-98.0); Mean Platelet Volume 8.2 fL (7.4-10.4); Platelet Count 266 thou/uL (130-400); RBC Distribution Width 12.4 % (11.5-14.5); Red Blood Cell (RBC) Count 3.75 mill/uL (4.20-5.40); White Blood Cell (WBC) Count 6.5 thou/uL (4.8-10.8)
[2020-08-27 18:56] LABS: INR-International Normal Ratio 1.1; PTT 28.4 sec (22.9-36.1); Prothrombin Time 13.9 sec (12.0-14.7)
[2020-08-27 18:57] LABS: ALT (SGPT) 21 U/L (8-55); AST (SGOT) 18 U/L (5-34); Albumin 3.8 g/dL (3.4-4.8); Alkaline Phosphatase 139 U/L (40-110); Anion Gap 12 mmol/L (10-20); BUN (Urea Nitrogen) 21 mg/dL (9.8-20.1); Bilirubin, Total 0.6 mg/dL (0.2-1.2); Calc. Creatinine Clearance 0 mL/min (70-130); Calcium 9.3 mg/dL (7.8-10.44); Carbon Dioxide 25 mmol/L (23-31); Chloride 108 mmol/L (98-107); Globulin 2.4 g/dL (2.4-3.5); Glucose 177 mg/dL (83-110); Lipase 9 U/L (8-78); Potassium 4.3 mmol/L (3.5-5.1); Protein, Total 6.2 g/dL (5.8-8.1); Sodium 141 mmol/L (136-145)
[2020-08-27] MEDS ORDERED: Nitroglycerin 0.4 MG TAB 1 EACH ONE (20:02)
[2020-08-27] MEDS ORDERED: Dextrose 5% in Water 1,000 ML IV PRN (20:15)
[2020-08-27] MEDS ORDERED: Acetaminophen 325 MG TAB PO PRN (20:15)
[2020-08-27] MEDS ORDERED: Ondansetron ODT 4 MG TAB PO PRN (20:15)
[2020-08-27] MEDS ORDERED: Dextrose 50% Abboject 50 ML SYRINGE SLOW IVP PRN (20:15)
[2020-08-27] MEDS ORDERED: Ondansetron PF 4 MG/2 ML Vial IVP PRN (20:15)
[2020-08-27] MEDS ORDERED: HumaLOG 300 UNITS/3 ML VIAL SC PRN ×2 (20:17)
[2020-08-27] MEDS ORDERED: hydrALAZINE 20 MG/ML VIAL SLOW IVP SCH (20:30)
[2020-08-27 21:23] LABS: Hemoglobin A1c 6.6 % (4.0-6.0)
[2020-08-27 22:54] VITALS: BMI 23.1
[2020-08-27] MEDS ORDERED: Morphine 4 MG/ML VIAL SLOW IVP PRN (23:56)
[2020-08-28] MEDS ORDERED: Lidocaine 2% Viscous Solution 20 ML, Aluminum & Magnesium Hydroxide 30 ML, Donnatal Eli... SSW SCH ×2 (00:15→22:00)
[2020-08-28 05:29] LABS: SARS-CoV-2 PCR by NAA Not Detected (NotDetected)
[2020-08-28 05:44] LABS: #Basophils 0.1 thou/uL (0.0-0.2); #Lymphocytes 2.5 thou/uL (1.20-3.40); #Monocytes 0.6 thou/uL (0.11-0.59); #Neutrophils 4.5 thou/uL (1.40-6.50); %Basophils 1.1 % (0.0-1.0); %Eosinophils 0.5 % (0.0-10.0); %Lymphocytes 32.7 % (21.0-51.0); %Monocytes 7.5 % (0.0-10.0); %Neutrophils 58.2 % (42.0-75.0); Hemoglobin 11.1 g/dL (12.0-16.0); Mean Corpuscular HGB CONC 31.4 g/dL (32.0-36.0); Mean Corpuscular Hemoglobin 30.6 pg (27.0-31.0); Mean Corpuscular Volume 97.4 fL (78.0-98.0); Mean Platelet Volume 8.4 fL (7.4-10.4); Platelet Count 224 thou/uL (130-400); RBC Distribution Width 12.7 % (11.5-14.5); Red Blood Cell (RBC) Count 3.64 mill/uL (4.20-5.40); White Blood Cell (WBC) Count 7.7 thou/uL (4.8-10.8)
[2020-08-28 05:54] LABS: Anion Gap 14 mmol/L (10-20); BUN (Urea Nitrogen) 20 mg/dL (9.8-20.1); Calc. Creatinine Clearance 48 mL/min (70-130); Calcium 8.9 mg/dL (7.8-10.44); Carbon Dioxide 22 mmol/L (23-31); Cardiac Risk 2.2 (Less than 4.5); Chloride 107 mmol/L (98-107); Cholesterol 89 mg/dl (< 200 Desired); Glucose 128 mg/dL (83-110); HDL Cholesterol 41 mg/dL (>60 Neg Risk); LDL Cholesterol, Calculated 36 mg/dL; Potassium 3.9 mmol/L (3.5-5.1); Sodium 139 mmol/L (136-145); Triglycerides 58 mg/dL (Less than 150)
[2020-08-28] MEDS: Enoxaparin Sodium 40 MG/0.4 ML SYRINGE SC SCH (08:18)
[2020-08-28] MEDS: metFORMIN 500 MG TAB PO SCH ×2 (08:18→16:50)
[2020-08-28] MEDS: Ferrous Sulfate 325 MG TAB PO SCH (08:18)
[2020-08-28] MEDS ORDERED: ADENOSINE 60 MG/20 ML VIAL ONE (08:48)
[2020-08-28] MEDS: Hydrochlorothiazide 25 MG TAB PO SCH (12:06)
[2020-08-28] MEDS: Lisinopril 20 MG TAB PO SCH (12:06)
[2020-08-28] MEDS: Furosemide 20 MG TAB PO SCH (12:06)
[2020-08-28] MEDS: Amlodipine 10 MG TAB PO SCH (12:07)
[2020-08-28] MEDS ORDERED: Atorvastatin Calcium 10 MG TAB PO SCH (21:00)
[2020-08-28] MEDS ORDERED: Gabapentin 400 MG CAP PO SCH (21:00)
[2020-08-29 05:46] LABS: Anion Gap 11 mmol/L (10-20); BUN (Urea Nitrogen) 17 mg/dL (9.8-20.1); Calc. Creatinine Clearance 52 mL/min (70-130); Calcium 8.8 mg/dL (7.8-10.44); Carbon Dioxide 26 mmol/L (23-31); Chloride 107 mmol/L (98-107); Glucose 143 mg/dL (83-110); Potassium 4.4 mmol/L (3.5-5.1); Sodium 140 mmol/L (136-145)
[2020-08-29 05:54] LABS: Mean Corpuscular HGB CONC 31.2 g/dL (32.0-36.0); Mean Corpuscular Hemoglobin 31.4 pg (27.0-31.0); Mean Platelet Volume 8.6 fL (7.4-10.4); Platelet Count 226 thou/uL (130-400); RBC Distribution Width 12.6 % (11.5-14.5); Red Blood Cell (RBC) Count 3.51 mill/uL (4.20-5.40); White Blood Cell (WBC) Count 3.5 thou/uL (4.8-10.8)
[2020-08-29 06:33] LABS: Band 1 % (5-11); Lymphocytes 45 % (21-51); MDiff Complete? YES; Monocytes 7 % (0-10); Neutrophil 44 % (42-75)
[2020-08-29] MEDS: Ferrous Sulfate 325 MG TAB PO SCH (08:01)
[2020-08-29] MEDS: Amlodipine 10 MG TAB PO SCH (08:01)
[2020-08-29] MEDS: metFORMIN 500 MG TAB PO SCH (08:01)
[2020-08-29] MEDS: Lisinopril 20 MG TAB PO SCH (08:02)
[2020-08-29] MEDS: Enoxaparin Sodium 40 MG/0.4 ML SYRINGE SC SCH (08:03)
[2020-08-29] MEDS: Furosemide 20 MG TAB PO SCH (08:04)
[2020-08-29] MEDS: Hydrochlorothiazide 25 MG TAB PO SCH (08:04)
[2020-08-29] MEDS ORDERED: Nitroglycerin 0.4 MG TAB (25 Tab Bottle) SL PRN (08:31)
[2020-08-29] MEDS ORDERED: Cyclobenzaprine 10 MG TAB PO PRN (08:31)
[2020-08-29 09:21] VITALS: TEMP 98.4
[2020-08-29 09:27] VITALS: BP 159/83
== END 2020-08-29 10:58 | disposition home or self-care (01) ==
LOC: ERS 17:47 → 2SW 20:15
PROVIDERS: ADMIT Family Medicine; ATTEND Internal Medicine
DX: I16.0 Hypertensive urgency (principal); R07.89 Other chest pain; I10 Essential (primary) hypertension; E11.9 Type 2 diabetes mellitus without complications; E78.5 Hyperlipidemia, unspecified; K21.9 Gastro-esophageal reflux disease without esophagitis; Z79.82 Long term (current) use of aspirin; Z79.84 Long term (current) use of oral hypoglycemic drugs; Z79.899 Other long term (current) drug therapy; Z20.822 Contact with and (suspected) exposure to COVID-19
CPT/HCPCS: 71045; 71275; 74174; 78452; 80048 ×2; 80061; 82962 ×3; 83036; 83690; 83880; 84484 ×2; 85025 ×2; 85610; 85730; 93005; 93017; 96372 ×2; 96374; 96375; 96376; 99285; A9500; G0378 ×4; U0003; U0005; 36415; 36416; 84443; 87635; 93010; J0153; J1650; J2270; J2405; Q0162; Q9967

== ENCOUNTER 2021-05-13 16:48 | Emergency (ER) | payer OTHER, MEDICARE ==
[2021-05-13] MEDS ORDERED: Fentanyl 100 MCG/2 ML VIAL ONE (17:43)
[2021-05-13 17:44] LABS: #Eosinphils 0.1 thou/uL (0.0-0.7); #Lymphocytes 1.3 thou/uL (1.20-3.40); #Monocytes 0.4 thou/uL (0.11-0.59); #Neutrophils 3.4 thou/uL (1.40-6.50); %Basophils 0.7 % (0.0-1.0); %Lymphocytes 25.5 % (21.0-51.0); %Monocytes 7.5 % (0.0-10.0); %Neutrophils 65.3 % (42.0-75.0); Hemoglobin 11.8 g/dL (12.0-16.0); Mean Corpuscular HGB CONC 31.6 g/dL (32.0-36.0); Mean Corpuscular Hemoglobin 31.1 pg (27.0-31.0); Mean Corpuscular Volume 98.2 fL (78.0-98.0); Platelet Count 230 thou/uL (130-400); RBC Distribution Width 12.1 % (11.5-14.5); White Blood Cell (WBC) Count 5.2 thou/uL (4.8-10.8)
[2021-05-13 17:48] LABS: Bilirubin Negative (Negative); Blood, Urine Negative (Negative); Clarity Clear (Clear); Glucose, Urine (Dipstick) Normal (Negative); Ketone, Urine Negative (Negative); Leukocyte Negative Leu/uL (Negative); Nitrite Negative (Negative); Protein, Urine (Dipstick) Negative (Neg-Trace); Specific Gravity, Urine 1.015 (1.002-1.036); Urobilinogen Normal mg/dL (Less than 2)
[2021-05-13 18:07] LABS: ALT (SGPT) 32 U/L (8-55); AST (SGOT) 26 U/L (5-34); Albumin 3.9 g/dL (3.4-4.8); Alkaline Phosphatase 124 U/L (40-110); Anion Gap 13 mmol/L (10-20); BUN (Urea Nitrogen) 21 mg/dL (9.8-20.1); Bilirubin, Total 0.5 mg/dL (0.2-1.2); Calc. Creatinine Clearance 0 mL/min (70-130); Calcium 9.4 mg/dL (7.8-10.44); Carbon Dioxide 25 mmol/L (23-31); Chloride 107 mmol/L (98-107); Glucose 188 mg/dL (83-110); Lipase 27 U/L (8-78); Potassium 3.4 mmol/L (3.5-5.1); Protein, Total 6.9 g/dL (5.8-8.1); Sodium 142 mmol/L (136-145)
[2021-05-13] MEDS ORDERED: Ondansetron PF 4 MG/2 ML Vial ONE (19:26)
[2021-05-13] MEDS ORDERED: Morphine 4 MG/ML VIAL ONE (19:26)
== END 2021-05-13 19:54 | disposition home or self-care (01) ==
LOC: ERS 16:48
DX: S20.211A Contusion of right front wall of thorax, initial encounter (principal); M54.2 Cervicalgia; R10.31 Right lower quadrant pain; I51.7 Cardiomegaly; M25.511 Pain in right shoulder; I12.9 Hypertensive chronic kidney disease with stage 1 through stage 4 chronic kidney disease, or unspecified chronic kidney disease; E11.22 Type 2 diabetes mellitus with diabetic chronic kidney disease; N18.2 Chronic kidney disease, stage 2 (mild); E78.5 Hyperlipidemia, unspecified; K21.9 Gastro-esophageal reflux disease without esophagitis; V49.50XA Passenger injured in collision with unspecified motor vehicles in traffic accident, initial encounter; W22.12XA Striking against or struck by front passenger side automobile airbag, initial encounter; Y92.411 Interstate highway as the place of occurrence of the external cause; Z79.84 Long term (current) use of oral hypoglycemic drugs; Z79.899 Other long term (current) drug therapy; Z85.3 Personal history of malignant neoplasm of breast
CPT/HCPCS: 70450; 71260; 72125; 74177; 80053; 81003; 83690; 85025; 93005; 96374; 96375; J2270; J2405; J3010

== ENCOUNTER 2023-12-26 03:04 | Inpatient (IN) | payer MEDICARE, OTHER ==
[2023-12-26] MEDS ORDERED: Morphine 2 MG/ML VIAL ONE (05:30)
[2023-12-26 07:53] LABS: Bilirubin Negative (Negative); Blood, Urine Negative (Negative); Glucose, Urine (Dipstick) Negative (Negative); Ketone, Urine Negative (Negative); Leukocyte Negative (Negative); Nitrite Negative (Negative); Protein, Urine (Dipstick) Negative (Neg-Trace); Urobilinogen 0.2 mg/dL (Less than 2)
[2023-12-26 07:57] LABS: Clarity Clear (Clear)
[2023-12-26 08:02] LABS: CAUTI Indications for Culture Pelvic or flank pain; RBC/HPF 0-3 HPF (0-3); Squamous Epithelial 0-3 HPF (0-3); WBC/HPF 0-3 HPF (0-3)
[2023-12-26 08:16] LABS: Bacteria/HPF Rare-Few HPF (None Seen)
[2023-12-26 08:17] LABS: Calcium Oxalate Crystals Rare HPF (None Seen)
[2023-12-26 08:18] LABS: Urine Culture Reflex No No
[2023-12-26] MEDS ORDERED: Ketorolac Tromethamine 30 MG (1 mL) VIAL ONE (08:39)
[2023-12-26] MEDS ORDERED: Glucagon 1 MG/ML KIT IM PRN (12:42)
[2023-12-26] MEDS ORDERED: Dextrose 50% Abboject 50 ML SYRINGE SLOW IVP PRN (12:42)
[2023-12-26] MEDS ORDERED: Bisacodyl 5 MG TAB PO PRN (12:42)
[2023-12-26] MEDS ORDERED: Dextrose 5% in Water 1,000 ML IV PRN (12:42)
[2023-12-26] MEDS: Morphine 2 MG/ML VIAL SLOW IVP PRN (14:22)
[2023-12-26] MEDS: Benzocaine/Menthol 1 LOZ LOZ PO SCH (15:46)
[2023-12-26 21:04] VITALS: BMI 24.0
[2023-12-26] MEDS: Gabapentin 100 MG CAP PO SCH (21:09)
[2023-12-27 05:36] LABS: #Basophils Less than 0.03 10x3/uL (0.0-0.2); %Basophils 0.4 % (0.0-1.0); %Lymphocytes 34.7 % (21.0-51.0); %Monocytes 17.6 % (0.0-10.0); %Neutrophils 46.1 % (42.0-75.0); Hematocrit 33.9 % (36.0-47.0); Hemoglobin 10.8 g/dL (12.0-16.0); Mean Corpuscular HGB CONC 31.9 g/dL (32.0-36.0); Mean Corpuscular Hemoglobin 30.9 pg (27.0-31.0); Mean Corpuscular Volume 97.1 fL (78.0-98.0); Mean Platelet Volume 10.5 fL (7.4-10.4); Platelet Count 156 10x3/uL (130-400); RBC Distribution Width 13.3 % (11.5-14.5); Red Blood Cell (RBC) Count 3.49 mill/uL (4.20-5.40)
[2023-12-27 06:02] LABS: Anion Gap 13 mmol/L (10-20); BUN (Urea Nitrogen) 17 mg/dL (9.8-20.1); Calc. Creatinine Clearance 50 mL/min (70-130); Calcium 8.4 mg/dL (7.8-10.44); Carbon Dioxide 19 mmol/L (23-31); Chloride 110 mmol/L (98-107); Estimated GFR 70; Glucose 145 mg/dL (83-110); Potassium 3.8 mmol/L (3.5-5.1); Sodium 138 mmol/L (136-145)
[2023-12-27] MEDS: Nitroglycerin 0.4 MG TAB (25 Tab Bottle) SL PRN (08:38)
[2023-12-27] MEDS: Amlodipine 10 MG TAB PO SCH (09:25)
[2023-12-27] MEDS: Lisinopril 20 MG TAB PO SCH (09:25)
[2023-12-27] MEDS: Famotidine 20 MG TAB PO SCH (09:26)
[2023-12-27 11:16] LABS: Base Excess -3.7 mEq/L (-2.0 to +3.0); Calcium, Ionized (venous) 1.04 mmol/L (1.16-1.32); Chloride (VBG) 105 mmol/L (98-106); Hematocrit-VBG 33 % (36.0-47.0); Hemoglobin (Hb) 11.1 g/dL (11.7-16.1); Potassium (VBG) 3.74 mmol/L (3.70-5.30); Sodium 135 mmol/L (133-146); pH (venous) 7.416 (7.32-7.43)
[2023-12-27 11:56] LABS: Prothrombin Time 13.5 sec (12.0-14.7)
[2023-12-27 11:57] LABS: PTT 32.5 sec (22.9-36.1)
[2023-12-27 11:59] LABS: D-Dimer Test 2.02 mcg/mL (0.27-0.43)
[2023-12-27 12:16] LABS: Influenza A by NAA Not Detected (NotDetected); Influenza B by NAA Not Detected (NotDetected); RSV by NAA Not Detected (NotDetected); SARS-CoV-2 NAA Rapid Test DETECTED (NotDetected)
[2023-12-27] MEDS: Insulin Lispro 100 UNIT/ML 10 ML VIAL SC PRN (12:17)
[2023-12-27] MEDS: Polyvinyl Alcohol 1.4%/Povidone 0.6% Opth Drops EA EYE SCH (13:36)
[2023-12-27] MEDS: traMADol HCl 50 MG TAB PO PRN ×2 (15:08→20:33)
[2023-12-27 16:13] LABS: Troponin I Less than 0.010 ng/mL (< 0.028)
[2023-12-27] MEDS ORDERED: Pharmacy to Dose REMDESIVIR IVPB SCH (16:15)
[2023-12-27] MEDS ORDERED: Furosemide 20 MG (2 mL) VIAL SLOW IVP SCH (16:15)
[2023-12-27] MEDS: Dexamethasone 4 mg/ml Vial SLOW IVP SCH (17:53)
[2023-12-27] MEDS: Ondansetron PF 4 MG/2 ML Vial IVP PRN (18:28)
[2023-12-27] MEDS: REMDESIVIR 200 MG in Sodium Chloride 0.9% 250 ML 210 ML IV SCH (20:21)
[2023-12-28] MEDS: Benzocaine/Menthol 1 LOZ LOZ PO PRN (03:07)
[2023-12-28 04:47] LABS: #Basophils Less than 0.03 10x3/uL (0.0-0.2); #Eosinphils Less than 0.03 10x3/uL (0.0-0.7); %Lymphocytes 16.6 % (21.0-51.0); %Monocytes 1.8 % (0.0-10.0); %Neutrophils 81.3 % (42.0-75.0); Hematocrit 35.3 % (36.0-47.0); Hemoglobin 11.5 g/dL (12.0-16.0); Mean Corpuscular HGB CONC 32.6 g/dL (32.0-36.0); Mean Corpuscular Hemoglobin 29.9 pg (27.0-31.0); Mean Corpuscular Volume 91.9 fL (78.0-98.0); Platelet Count 189 10x3/uL (130-400); RBC Distribution Width 12.9 % (11.5-14.5); Red Blood Cell (RBC) Count 3.84 mill/uL (4.20-5.40)
[2023-12-28 04:51] LABS: ALT (SGPT) 14 U/L (8-55); AST (SGOT) 17 U/L (5-34); Alkaline Phosphatase 73 U/L (40-110); Anion Gap 14 mmol/L (10-20); BUN (Urea Nitrogen) 15 mg/dL (9.8-20.1); Bilirubin, Total 0.3 mg/dL (0.2-1.2); Calc. Creatinine Clearance 50 mL/min (70-130); Calcium 8.8 mg/dL (7.8-10.44); Carbon Dioxide 20 mmol/L (23-31); Chloride 106 mmol/L (98-107); Estimated GFR 69; Globulin 3.1 g/dL (2.4-3.5); Glucose 237 mg/dL (83-110); Iron 19 ug/dL (50-170); Iron Binding Capacity, Total 204 mcg/dL (265-497); Iron Binding Capacity, Total 205 mcg/dL (265-497); Magnesium 1.6 mg/dL (1.6-2.6); Potassium 4.1 mmol/L (3.5-5.1); Protein, Total 6.1 g/dL (5.8-8.1); Sodium 136 mmol/L (136-145)
[2023-12-28 05:12] LABS: Ferritin 372.94 ng/mL (10-291)
[2023-12-28] MEDS: Dexamethasone 4 mg/ml Vial SLOW IVP SCH (08:19)
[2023-12-28] MEDS: Enoxaparin 40 MG (0.4 mL) SYRINGE SC SCH (08:20)
[2023-12-28] MEDS: Ferrous Sulfate 325 MG TAB PO SCH (08:20)
[2023-12-28] MEDS: Pantoprazole DR 40 MG TAB PO SCH (08:20)
[2023-12-28] MEDS: Lactated Ringer's 1,000 ML IV SCH (10:47)
[2023-12-28] MEDS: Sucralfate 1 GM TAB PO SCH (10:47)
[2023-12-28] MEDS: REMDESIVIR 100 MG in Sodium Chloride 0.9% 250 ML 230 ML IV SCH (16:58)
[2023-12-28] MEDS ORDERED: Lisinopril 10 MG TAB PO SCH (21:00)
[2023-12-29 07:37] LABS: ALT (SGPT) 14 U/L (8-55); AST (SGOT) 17 U/L (5-34); Albumin 3.1 g/dL (3.4-4.8); Alkaline Phosphatase 74 U/L (40-110); Anion Gap 15 mmol/L (10-20); BUN (Urea Nitrogen) 22 mg/dL (9.8-20.1); Bilirubin, Total 0.5 mg/dL (0.2-1.2); Calc. Creatinine Clearance 49 mL/min (70-130); Calcium 9.2 mg/dL (7.8-10.44); Carbon Dioxide 23 mmol/L (23-31); Chloride 105 mmol/L (98-107); Estimated GFR 67; Globulin 3.2 g/dL (2.4-3.5); Glucose 128 mg/dL (83-110); Potassium 3.9 mmol/L (3.5-5.1); Protein, Total 6.3 g/dL (5.8-8.1); Sodium 139 mmol/L (136-145)
[2023-12-29] MEDS: Fludrocortisone Acetate 0.1 MG TAB PO SCH (16:11)
[2023-12-30] MEDS: Fludrocortisone Acetate 0.1 MG TAB PO SCH (08:13)
[2023-12-30] MEDS: Acetaminophen 325 MG TAB PO PRN (10:03)
[2023-12-30] MEDS: Lactated Ringer's 1,000 ML IV SCH (17:03)
[2023-12-30] MEDS: Ibuprofen 200 MG TAB PO PRN (21:04)
[2023-12-31 04:31] LABS: #Basophils Less than 0.03 10x3/uL (0.0-0.2); #Eosinphils Less than 0.03 10x3/uL (0.0-0.7); %Basophils 0.2 % (0.0-1.0); %Eosinophils 0.5 % (0.0-10.0); %Lymphocytes 48.8 % (21.0-51.0); %Monocytes 10.9 % (0.0-10.0); %Neutrophils 39.1 % (42.0-75.0); Hematocrit 34.4 % (36.0-47.0); Hemoglobin 11.4 g/dL (12.0-16.0); Mean Corpuscular HGB CONC 33.1 g/dL (32.0-36.0); Mean Corpuscular Hemoglobin 30.3 pg (27.0-31.0); Mean Corpuscular Volume 91.5 fL (78.0-98.0); Mean Platelet Volume 10.9 fL (7.4-10.4); Platelet Count 220 10x3/uL (130-400); RBC Distribution Width 12.7 % (11.5-14.5); Red Blood Cell (RBC) Count 3.76 mill/uL (4.20-5.40)
[2023-12-31 08:01] LABS: ALT (SGPT) 17 U/L (8-55); AST (SGOT) 20 U/L (5-34); Albumin 2.8 g/dL (3.4-4.8); Alkaline Phosphatase 66 U/L (40-110); Anion Gap 12 mmol/L (10-20); BUN (Urea Nitrogen) 15 mg/dL (9.8-20.1); Bilirubin, Total 0.5 mg/dL (0.2-1.2); Calc. Creatinine Clearance 61 mL/min (70-130); Calcium 8.6 mg/dL (7.8-10.44); Carbon Dioxide 26 mmol/L (23-31); Chloride 105 mmol/L (98-107); Estimated GFR 85; Globulin 2.6 g/dL (2.4-3.5); Glucose 129 mg/dL (83-110); Potassium 2.7 mmol/L (3.5-5.1); Protein, Total 5.4 g/dL (5.8-8.1); Sodium 140 mmol/L (136-145)
[2023-12-31] MEDS ORDERED: Amlodipine 10 MG TAB PO SCH (09:00)
[2023-12-31] MEDS: Midodrine HCl 5 MG TAB PO SCH ×2 (09:37→16:06)
[2023-12-31] MEDS ORDERED: Electrolyte Replacement Protocol FS PRN (11:45)
[2023-12-31] MEDS: Potassium Chloride 20 MEQ TAB PO SCH (12:20)
[2023-12-31] MEDS: Sodium Chloride 0.9% 1,000 ML IV SCH (16:06)
[2024-01-01 07:35] LABS: #Basophils Less than 0.03 10x3/uL (0.0-0.2); %Basophils 0.5 % (0.0-1.0); %Eosinophils 0.9 % (0.0-10.0); %Lymphocytes 42.6 % (21.0-51.0); %Monocytes 10.6 % (0.0-10.0); %Neutrophils 45.2 % (42.0-75.0); Hemoglobin 12.3 g/dL (12.0-16.0); Mean Corpuscular HGB CONC 33.2 g/dL (32.0-36.0); Mean Corpuscular Hemoglobin 30.8 pg (27.0-31.0); Mean Corpuscular Volume 92.5 fL (78.0-98.0); Mean Platelet Volume 10.4 fL (7.4-10.4); Platelet Count 243 10x3/uL (130-400); RBC Distribution Width 13.1 % (11.5-14.5)
[2024-01-01 07:51] LABS: ALT (SGPT) 22 U/L (8-55); AST (SGOT) 25 U/L (5-34); Albumin 2.9 g/dL (3.4-4.8); Alkaline Phosphatase 68 U/L (40-110); Anion Gap 12 mmol/L (10-20); BUN (Urea Nitrogen) 13 mg/dL (9.8-20.1); Bilirubin, Total 0.5 mg/dL (0.2-1.2); Calc. Creatinine Clearance 47 mL/min (70-130); Calcium 8.7 mg/dL (7.8-10.44); Carbon Dioxide 23 mmol/L (23-31); Chloride 107 mmol/L (98-107); Estimated GFR 64; Glucose 154 mg/dL (83-110); Magnesium 1.5 mg/dL (1.6-2.6); Potassium 3.6 mmol/L (3.5-5.1); Protein, Total 5.9 g/dL (5.8-8.1); Sodium 138 mmol/L (136-145)
[2024-01-01] MEDS: Magnesium 2 GM/50 ML(in water) 2 GM in Premix 1 BAG IVPB SCH (08:18)
[2024-01-02 05:44] LABS: Anion Gap 13 mmol/L (10-20); BUN (Urea Nitrogen) 19 mg/dL (9.8-20.1); Calc. Creatinine Clearance 43 mL/min (70-130); Calcium 8.7 mg/dL (7.8-10.44); Carbon Dioxide 21 mmol/L (23-31); Chloride 107 mmol/L (98-107); Estimated GFR 58; Glucose 179 mg/dL (83-110); Magnesium 1.9 mg/dL (1.6-2.6); Sodium 138 mmol/L (136-145)
[2024-01-02] MEDS: Potassium Chloride 20 MEQ TAB PO SCH (09:00)
[2024-01-02] MEDS: Magnesium 2 GM/50 ML(in water) 2 GM in Premix 1 BAG IVPB SCH (09:10)
[2024-01-02] MEDS ORDERED: Iopamidol-370 76% 500 ML MDV (1 ML CHARGE) ONE (09:18)
[2024-01-02] MEDS: Sodium Chloride 0.9% 500 ML IV SCH (14:19)
[2024-01-02] MEDS: Midodrine HCl 5 MG TAB PO SCH (14:19)
[2024-01-02] MEDS: Ketorolac Tromethamine 30 MG (1 mL) VIAL IVP SCH (15:39)
[2024-01-02] MEDS ORDERED: Promethazine HCl 25 MG in Sodium Chloride 0.9% 50 ML IVPB PRN (18:36)
[2024-01-03 10:09] LABS: Chloride 105 mmol/L (98-107); Potassium 3.6 mmol/L (3.5-5.1); Sodium 137 mmol/L (136-145)
[2024-01-03 10:31] LABS: Anion Gap 13 mmol/L (10-20); BUN (Urea Nitrogen) 20 mg/dL (9.8-20.1); Calc. Creatinine Clearance 43 mL/min (70-130); Calcium 8.9 mg/dL (7.8-10.44); Carbon Dioxide 23 mmol/L (23-31); Estimated GFR 58; Glucose 181 mg/dL (83-110)
[2024-01-03 13:59] VITALS: BMI 24.0
[2024-01-04 05:41] LABS: Anion Gap 13 mmol/L (10-20); BUN (Urea Nitrogen) 22 mg/dL (9.8-20.1); Calc. Creatinine Clearance 43 mL/min (70-130); Calcium 9.3 mg/dL (7.8-10.44); Carbon Dioxide 22 mmol/L (23-31); Chloride 108 mmol/L (98-107); Estimated GFR 58; Glucose 173 mg/dL (83-110); Potassium 3.9 mmol/L (3.5-5.1); Sodium 139 mmol/L (136-145)
[2024-01-04] MEDS: Fioricet 325/50/40 mg Tablet PO PRN (21:22)
[2024-01-05 05:23] LABS: Anion Gap 13 mmol/L (10-20); BUN (Urea Nitrogen) 23 mg/dL (9.8-20.1); Calc. Creatinine Clearance 45 mL/min (70-130); Calcium 9.5 mg/dL (7.8-10.44); Carbon Dioxide 24 mmol/L (23-31); Chloride 105 mmol/L (98-107); Estimated GFR 62; Glucose 153 mg/dL (83-110); Magnesium 1.9 mg/dL (1.6-2.6); Potassium 4.3 mmol/L (3.5-5.1); Sodium 138 mmol/L (136-145)
[2024-01-05] MEDS ORDERED: Lisinopril 5 MG TAB PO SCH (18:15)
[2024-01-05 20:47] LABS: Troponin I 0.011 ng/mL (< 0.028)
[2024-01-05] MEDS: Midodrine HCl 5 MG TAB PO SCH (21:59)
[2024-01-06 05:03] LABS: Anion Gap 12 mmol/L (10-20); BUN (Urea Nitrogen) 24 mg/dL (9.8-20.1); Calc. Creatinine Clearance 39 mL/min (70-130); Calcium 9.5 mg/dL (7.8-10.44); Carbon Dioxide 26 mmol/L (23-31); Chloride 105 mmol/L (98-107); Estimated GFR 52; Glucose 140 mg/dL (83-110); Magnesium 1.7 mg/dL (1.6-2.6); Potassium 4.4 mmol/L (3.5-5.1); Sodium 139 mmol/L (136-145)
[2024-01-06] MEDS ORDERED: Lisinopril 2.5 MG TAB PO SCH (09:00)
[2024-01-07] MEDS: hydrALAZINE 20 MG/ML VIAL SLOW IVP SCH (05:14)
[2024-01-07 06:09] LABS: Anion Gap 12 mmol/L (10-20); BUN (Urea Nitrogen) 24 mg/dL (9.8-20.1); Calc. Creatinine Clearance 40 mL/min (70-130); Carbon Dioxide 25 mmol/L (23-31); Chloride 106 mmol/L (98-107); Estimated GFR 53; Glucose 138 mg/dL (83-110); Magnesium 1.9 mg/dL (1.6-2.6); Potassium 3.9 mmol/L (3.5-5.1); Sodium 139 mmol/L (136-145)
[2024-01-07 06:13] LABS: Troponin I Less than 0.010 ng/mL (< 0.028)
[2024-01-07] MEDS: Midodrine HCl 5 MG TAB PO SCH (14:48)
[2024-01-07] MEDS: hydrALAZINE 25 MG TAB PO SCH (14:49)
[2024-01-08 04:34] LABS: Anion Gap 13 mmol/L (10-20); BUN (Urea Nitrogen) 25 mg/dL (9.8-20.1); Calc. Creatinine Clearance 39 mL/min (70-130); Calcium 9.7 mg/dL (7.8-10.44); Carbon Dioxide 27 mmol/L (23-31); Chloride 105 mmol/L (98-107); Estimated GFR 51; Glucose 141 mg/dL (83-110); Potassium 4.2 mmol/L (3.5-5.1); Sodium 141 mmol/L (136-145)
[2024-01-09] MEDS: Acetaminophen 325 MG TAB PO PRN (04:22)
[2024-01-11] MEDS: Lisinopril 20 MG TAB PO SCH (08:36)
[2024-01-11] MEDS: Acetaminophen/Codeine 30-300mg Tablet PO PRN (12:36)
[2024-01-11] MEDS: Ibuprofen 600 MG TAB PO PRN (14:27)
[2024-01-11] MEDS: Acetaminophen 500 MG TAB PO PRN (16:39)
[2024-01-12] MEDS: Loratadine 10 MG TAB PO SCH ×2 (04:37→09:39)
[2024-01-13] MEDS: Simethicone Chewable 80 MG TAB PO PRN (23:15)
[2024-01-15 08:49] VITALS: BP 121/74
[2024-01-15 08:52] VITALS: TEMP 98.7
== END 2024-01-15 12:30 | DRG 312 ==
LOC: ERS 03:04 → MSONC 11:09 → OBSVTOIN 12-27 16:13 → 2SW 12-27 17:49 → T4-A 01-10 20:58
PROVIDERS: ADMIT Internal Medicine; ATTEND Hospitalist
PROC: XW033E5 Introduction of Remdesivir Anti-infective into Peripheral Vein, Percutaneous Approach, New Technology Group 5 (ICD-10-PCS; principal; 2023-12-27)
DX: I95.1 Orthostatic hypotension (principal); J96.01 Acute respiratory failure with hypoxia; U07.1 COVID-19; S52.202A Unspecified fracture of shaft of left ulna, initial encounter for closed fracture; N17.9 Acute kidney failure, unspecified; E87.1 Hypo-osmolality and hyponatremia; E78.5 Hyperlipidemia, unspecified; K21.9 Gastro-esophageal reflux disease without esophagitis; N18.2 Chronic kidney disease, stage 2 (mild); E11.22 Type 2 diabetes mellitus with diabetic chronic kidney disease; D50.9 Iron deficiency anemia, unspecified; E63.1 Imbalance of constituents of food intake; Z98.41 Cataract extraction status, right eye; Z79.84 Long term (current) use of oral hypoglycemic drugs; Z79.899 Other long term (current) drug therapy; Z90.49 Acquired absence of other specified parts of digestive tract; Z98.42 Cataract extraction status, left eye; Z90.710 Acquired absence of both cervix and uterus; I10 Essential (primary) hypertension; E87.6 Hypokalemia; E83.42 Hypomagnesemia; R07.89 Other chest pain; M40.209 Unspecified kyphosis, site unspecified; W18.30XA Fall on same level, unspecified, initial encounter
CPT/HCPCS: 0241U; 36415; 36416; 70450; 70496; 70551; 71045; 71046; 71250; 71275; 72100; 72128; 72131; 80048; 80053; 81001; 82533; 82607; 82728; 82805; 83540; 83550; 83605; 83735; 84443; 84484; 85025; 85046; 85379; 85610; 85730; 86850; 86900; 86901; 87040; 93005; 93010; 93306; 96374; 96375; 96376; G0378; J0248; J0360; J1100; J1650; J1815; J1885; J2272; J2405; J3475; J7030; J7050; J7120; Q9967